=== PATIENT | male | born 1940 | race Caucasian/White ===

== ENCOUNTER 2018-10-22 11:53 | Inpatient (IN) ==
--- NOTE | 2018-10-14 09:35 | EKG Report ---
Test Performed on : 10/14/2018 09:23:14 AM Test Reason : PAT Blood Pressure : / mmHG Vent. Rate : 086 BPM Atrial Rate : 033 BPM P-R Int : 000 ms QRS Dur : 104 ms QT Int : 408 ms P-R-T Axes : 000 -74 060 degrees QTc Int : 488 ms Atrial fibrillation. 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 has replaced Sinus rhythm. Vent. rate has increased BY 31 BPM Incomplete right bundle branch block is no longer present QT has lengthened Confirmed by John Soto MD ([id number]) on 10/15/2018 12:01:54 PM
[2018-10-14 10:00] LABS: HEMATOCRIT 45.5 % (42.0-52.0); HEMOGLOBIN 15.3 g/dL (14.0-18.0); MCH 31.5 PG (27-31); MCHC 33.6 g/dL (33-37); MCV 93.8 FL (81-99); MPV 9.1 FL (7.4-10.4); RBC 4.85 XMIL (4.7-6.1); WBC 7.23 X1000 (4.8-10.8)
[2018-10-14 10:42] LABS: AGAP 11; BUN 19 mg/dL (8-22); CALCIUM 8.7 mg/dL (8.8-10.2); CHLORIDE 101 mmol/L (98-107); COSMO 279; CREATININE 1.1 mg/dL (0.7-1.2); ESTIMATED GFR > 60; GLUCOSE 109 mg/dL (70-104); POTASSIUM 4.5 mmol/L (3.5-5.1); SODIUM 138 mmol/L (136-145); TCO2 26 mmol/L (25-35)
[2018-10-22] MEDS ORDERED: PEPCID ONE (12:09)
[2018-10-22] MEDS ORDERED: REGLAN ONE (12:09)
[2018-10-22] MEDS ORDERED: KEFZOL 1 GM/D5W 1 GM/50 ML IVPB ONE (12:09)
[2018-10-22] MEDS ORDERED: LR 1,000 ML ONE (12:09)
[2018-10-22] MEDS ORDERED: XYLOCAINE-MPF 2% ONE (12:46)
[2018-10-22] MEDS ORDERED: DIPRIVAN 1% ONE (12:47)
[2018-10-22] MEDS ORDERED: FENTANYL ONE (12:47)
[2018-10-22] MEDS ORDERED: NORCURON ONE (12:48)
[2018-10-22] MEDS ORDERED: SODIUM CHLORIDE 0.9% 10 ML ONE ×2 (12:48→14:40)
[2018-10-22 13:14] LABS: AGAP 13; BUN 22 mg/dL (8-22); CALCIUM 8.6 mg/dL (8.8-10.2); CHLORIDE 101 mmol/L (98-107); COSMO 275; CREATININE 1.1 mg/dL (0.7-1.2); ESTIMATED GFR > 60; GLUCOSE 135 mg/dL (70-104); POTASSIUM 4.1 mmol/L (3.5-5.1); SODIUM 135 mmol/L (136-145); TCO2 21 mmol/L (25-35)
[2018-10-22] MEDS ORDERED: KEFZOL ONE (13:43)
[2018-10-22] MEDS ORDERED: PAPAVERINE ONE (13:43)
[2018-10-22] MEDS ORDERED: NS 1,000 ML ONE ×3 (13:43→16:46)
[2018-10-22] MEDS ORDERED: HEPARIN ONE ×2 (13:43→14:40)
[2018-10-22] MEDS ORDERED: SENSORCAINE 0.25%/EPI 1:200,000 ONE (14:05)
[2018-10-22] MEDS ORDERED: EPHEDRINE ONE (14:19)
[2018-10-22] MEDS ORDERED: HEPARIN (DOSE) ONE ×2 (14:26→14:29)
[2018-10-22 14:27] LABS: URINE SOURCE CATH
[2018-10-22 14:31] LABS: BILIRUBIN URINE NEGATIVE (NEGATIVE); BLOOD URINE MODERATE (NEGATIVE); COLOR YELLOW; GLUCOSE URINE NEGATIVE (NEGATIVE); KETONE URINE 10 mg/dL (NEGATIVE); LEUKOCYTES URINE NEGATIVE (NEGATIVE); NITRITE URINE NEGATIVE (NEGATIVE); PH URINE 5.5; PROTEIN URINE 30 mg/dL (NEGATIVE); SP GRAVITY URINE 1.022; TURBIDITY URINE CLEAR (CLEAR); UROBILINOGEN URINE 2 mg/dL (NORMAL)
[2018-10-22 14:33] LABS: UR EPITHELIAL CELLS <10 /HPF (<10); URINE BACTERIA NEGATIVE /HPF; URINE RBC TNTC /HPF (<10); URINE WBC <10 /HPF (<10)
[2018-10-22] MEDS ORDERED: NEO-SYNEPHRINE ONE (14:40)
[2018-10-22] MEDS ORDERED: ROBINUL ONE (14:45)
[2018-10-22] MEDS ORDERED: NEOSTIGMINE ONE (14:45)
[2018-10-22] MEDS ORDERED: VENTOLIN HFA ONE (15:11)
[2018-10-22] MEDS: MORPHINE ONE ×2 (16:56→16:59)
[2018-10-22] MEDS ORDERED: NS 1,000 ML IV SCH (17:25)
[2018-10-22] MEDS: PERCOCET-10 PO PRN (18:58)
[2018-10-22] MEDS: PERIDEX MT SCH (20:16)
[2018-10-22] MEDS: TENORMIN PO SCH (20:16)
[2018-10-22] MEDS: DILAUDID IV PRN (20:16)
[2018-10-22] MEDS: ELIQUIS PO SCH (20:16)
--- NOTE | 2018-10-22 21:23 | OPERATIVE NOTE ---
PROCEDURE DATE: 10/22/2018 PROCEDURE PERFORMED: Right femoral to distal popliteal cadaveric vein bypass. SURGEON: Galileo Encinas MD. SUGAR REPROCESS OPERATOR HEAD: Grazyna Truong. PREOPERATIVE DIAGNOSIS: Right leg claudication with superficial femoral artery and popliteal occlusion. POSTOPERATIVE DIAGNOSIS: Right leg claudication with superficial femoral artery and popliteal occlusion. FINDINGS: The patient had a previous popliteal stent; it is now occluded. His whole superficial femoral artery was occluded. His greater saphenous vein felt to be marginal for use, so, I chose a cadaveric vein. DESCRIPTION OF PROCEDURE: After satisfactory general endotracheal anesthesia, the right leg was prepped and draped in a sterile fashion. The foot was excluded. A vertical incision was made in the right groin. Dissection was carried down to the common femoral artery and surrounded with an umbilical tape proximally. The superficial femoral and deep femoral surrounded with large vessel loops. We then turned our attention to the distal leg, and the proximal medial calf was incised longitudinally. We carried our incision in the distal popliteal space. Here we identified the distal popliteal artery and surrounded it with a vessel loop proximally and distally right, and the tibioperoneal trunk with another vessel loop going around the anterior tibial artery. We then passed Dossick tunneler from proximal to distal. After that had been positioned, we gave the patient 6000 units of heparin systemically. The vein had been thawed, and we had a 75 cm vein from a 21- year-old with less than 24-hour ischemic time. The vein was flushed according to recommendations with saline and heparin. We then stretched the vein out on the back table and marked it so that we would not twist it. We then passed the vein in the appropriate position through the Dossick tunneler from distal to proximal. We then clamped the artery proximally on the common femoral and used a profunda clamp on the deep femoral. We then made a longitudinal incision in the common femoral. There was calcium plaque in the artery. We then spatulated the vein graft and constructed this anastomosis with a 5-0 Prolene stitch. Upon completion, we then allowed flow in the vein graft. A couple of extra stitches were used along the proximal anastomosis. The vein did distend and lengthen. We stretched it out so that we would have no extra redundancy throughout its course in the leg. I had a good pulse. We then kept the common femoral clamped, looked in the distal popliteal, incised the distal popliteal, and passed a 3 probe distally. There was some plaque there at the takeoff of the anterior tibial, and we could not really enter the anterior tibial. The 3 probe would go into the tibioperoneal trunk, and there was back bleeding. We then cut the vein graft the appropriate length. We incised the vein graft to match our arteriotomy and then constructed this anastomosis under 2.5 loupe magnification using a 6-0 Prolene stitch. Just prior to finishing, we back-bled the distal vessel. We flushed the vein graft, and there was excellent pulsatile flow. We then finished the anastomosis, and flow was established. An extra stitch was used in the distal anastomosis as well. We irrigated out both wounds with Kefzol-impregnated saline. We then closed both wounds with 2 layers of 3-0 Polysorb interrupted stitches. The skin was then closed with a 4-0 Polysorb subcuticular stitch on both wounds. Sterile dressings were applied. He tolerated it well. Estimated blood loss was 100 mL. Sent to the recovery room in satisfactory condition. cc: Galileo Encinas MD [facility]
[2018-10-22 22:37] LABS: URINE SOURCE CATH
[2018-10-22 22:56] LABS: BILIRUBIN URINE NEGATIVE (NEGATIVE); BLOOD URINE MODERATE (NEGATIVE); COLOR YELLOW; GLUCOSE URINE 150 mg/dL (NEGATIVE); KETONE URINE 10 mg/dL (NEGATIVE); LEUKOCYTES URINE NEGATIVE (NEGATIVE); NITRITE URINE NEGATIVE (NEGATIVE); PROTEIN URINE 30 mg/dL (NEGATIVE); SP GRAVITY URINE 1.019; TURBIDITY URINE CLEAR (CLEAR); UROBILINOGEN URINE NORMAL (NORMAL)
[2018-10-22 22:59] LABS: UR EPITHELIAL CELLS <10 /HPF (<10); URINE BACTERIA NEGATIVE /HPF; URINE WBC <10 /HPF (<10)
[2018-10-22 23:18] LABS: URINE CASTS NONE SEEN; URINE CRYSTALS NONE SEEN; URINE SMALL ROUND CELLS NONE SEEN; URINE YEAST NONE SEEN
[2018-10-23] MEDS: DILAUDID IV PRN ×4 (01:06→22:54)
[2018-10-23] MEDS: PERCOCET-10 PO PRN ×2 (05:40→12:50)
[2018-10-23 06:39] LABS: BASO# 0.01 X1000 (0.0-0.2); BASO% 0.1 % (0.0-0.8); EOS# 0.06 X1000 (0.0-0.7); EOS% 0.8 % (0.0-10.0); HEMATOCRIT 38.1 % (42.0-52.0); HEMOGLOBIN 12.7 g/dL (14.0-18.0); LYMPH% 17.6 % (20.5-51.1); MCH 31.5 PG (27-31); MCHC 33.3 g/dL (33-37); MCV 94.5 FL (81-99); MONO# 1.08 X1000 (0.11-0.59); MONO% 14.7 % (1.7-9.3); MPV 9.5 FL (7.4-10.4); NEUT# 4.92 X1000 (1.4-6.5); NEUT% 66.8 % (42.2-75.2); PLT 189 X1000 (130-400); RBC 4.03 XMIL (4.7-6.1); RDW 15.2 % (11.5-14.5); WBC 7.37 X1000 (4.8-10.8)
[2018-10-23 07:20] LABS: AGAP 9; BUN 19 mg/dL (8-22); CALCIUM 7.7 mg/dL (8.8-10.2); CHLORIDE 102 mmol/L (98-107); COSMO 275; CREATININE 1.1 mg/dL (0.7-1.2); ESTIMATED GFR > 60; GLUCOSE 151 mg/dL (70-104); POTASSIUM 4.8 mmol/L (3.5-5.1); SODIUM 135 mmol/L (136-145); TCO2 24 mmol/L (25-35)
[2018-10-23] MEDS: PERIDEX MT SCH ×2 (08:15→21:37)
[2018-10-23] MEDS: ELIQUIS PO SCH ×2 (08:15→22:56)
[2018-10-23] MEDS: ASPIRIN PO SCH (08:15)
[2018-10-23] MEDS: NORVASC PO SCH (08:15)
[2018-10-23] MEDS: TENORMIN PO SCH ×2 (08:15→22:56)
[2018-10-23] MEDS ORDERED: NS 1,000 ML IV SCH (15:05)
--- NOTE | 2018-10-23 22:34 | GENERAL SURGERY PROGRESS NOTE ---
DATE: 10/23/2018 SUBJECTIVE: Postop day 1 after right femoral distal popliteal to the cadaveric vein bypass. OBJECTIVE: His foot is warm. He has a faint posterior tibial pulse. His hemodynamics were good. Hemoglobin 12.7. Chemistry is fine. PLAN: The plan will be to remove his Ackerman, make his IV KVO and we will allow him to go home tomorrow on Eliquis. He will return to see me in the office in a week. We discussed his activity. He knows he is to stop smoking. cc: Galileo Encinas MD
[2018-10-24] MEDS: PERCOCET-10 PO PRN ×3 (02:22→14:11)
[2018-10-24] MEDS: DILAUDID IV PRN ×4 (02:58→23:16)
[2018-10-24] MEDS: PERIDEX MT SCH ×2 (08:21→23:03)
[2018-10-24] MEDS: ASPIRIN PO SCH (08:21)
[2018-10-24] MEDS: TENORMIN PO SCH ×2 (08:21→23:04)
[2018-10-24] MEDS: ELIQUIS PO SCH ×2 (08:21→23:03)
[2018-10-24] MEDS: NORVASC PO SCH (08:21)
[2018-10-24] MEDS ORDERED: FLOMAX PO ONE (12:52)
[2018-10-24 19:10] LABS: URINE SOURCE CATH
[2018-10-24 19:27] LABS: BILIRUBIN URINE NEGATIVE (NEGATIVE); BLOOD URINE LARGE (NEGATIVE); COLOR YELLOW; GLUCOSE URINE TRACE mg/dL (NEGATIVE); KETONE URINE NEGATIVE (NEGATIVE); LEUKOCYTES URINE TRACE (NEGATIVE); NITRITE URINE NEGATIVE (NEGATIVE); PROTEIN URINE 30 mg/dL (NEGATIVE); SP GRAVITY URINE 1.019; TURBIDITY URINE CLEAR (CLEAR); UROBILINOGEN URINE NORMAL (NORMAL)
[2018-10-24 20:01] LABS: UR EPITHELIAL CELLS <10 /HPF (<10); URINE BACTERIA NEGATIVE /HPF; URINE RBC TNTC /HPF (<10); URINE WBC <10 /HPF (<10)
[2018-10-24 20:03] LABS: URINE CASTS NONE SEEN; URINE CRYSTALS NONE SEEN; URINE YEAST NONE SEEN
[2018-10-25] MEDS: DILAUDID IV PRN ×4 (07:56→21:43)
[2018-10-25] MEDS: PERIDEX MT SCH ×2 (09:15→21:44)
[2018-10-25] MEDS: TENORMIN PO SCH ×2 (09:15→21:44)
[2018-10-25] MEDS: ASPIRIN PO SCH (09:16)
[2018-10-25] MEDS: ELIQUIS PO SCH ×2 (09:16→21:44)
[2018-10-25] MEDS: FLOMAX PO SCH (09:16)
[2018-10-25] MEDS: NORVASC PO SCH (09:16)
[2018-10-25] MEDS: PERCOCET-10 PO PRN ×3 (10:13→23:18)
[2018-10-25] MEDS: DUONEB (A & A) INH SCH ×4 (11:07→23:03)
--- NOTE | 2018-10-25 11:08 | Diag Imaging Result Doc PS360 ---
CHEST-2 VIEWS - 10/25/2018 INDICATION: increases shortness of breath COMPARISON: 06/29/2015 FINDINGS: There is severe COPD. There are diffuse interstitial infiltrates in the midlungs and lung bases. There are trace bilateral pleural effusions. Heart size is slightly enlarged. IMPRESSION: Cardiomegaly, pulmonary edema, trace pleural effusions. Severe COPD. Electronically signed by Marques Victoria 10/25/2018 11:06 AM
--- NOTE | 2018-10-25 14:10 | PROGRESS NOTE ---
DATE: 10/25/2018 Mr. Merino is now postop day right femoral popliteal arterial bypass graft per Dr. Encinas. He is still having some serosanguineous drainage from his lower incision which is intact and without infection. He is having some work of breathing. He is on nasal cannula O2. We had to place a Ackerman yesterday because of urinary retention. We started him on Flomax. He needs breathing treatments. He may need home O2. We are concerned about his living situation. Home health has been consulted but they may not see him over the weekend. We are going to try to improve his breathing with breathing treatments. We will get a chest x-ray. We will leave his Ackerman catheter tube in place. He is on Flomax. He is on Eliquis. We are also concerned whether he fills and takes his medicine correctly. I have signed a paper for consideration of home O2. He is not eating well and I have encouraged him to take p.o. nutrition. cc: MD Galileo Garsia MD
[2018-10-25] MEDS: ZOFRAN IV PRN (19:24)
[2018-10-26] MEDS: DUONEB (A & A) INH SCH ×6 (03:34→23:22)
[2018-10-26] MEDS: DILAUDID IV PRN ×4 (04:11→22:15)
[2018-10-26] MEDS: PERCOCET-10 PO PRN ×3 (06:46→18:48)
[2018-10-26] MEDS: ELIQUIS PO SCH ×2 (08:48→22:18)
[2018-10-26] MEDS: NORVASC PO SCH (08:48)
[2018-10-26] MEDS: PERIDEX MT SCH ×2 (08:48→22:18)
[2018-10-26] MEDS: ASPIRIN PO SCH (08:48)
[2018-10-26] MEDS: TENORMIN PO SCH ×2 (08:48→22:18)
[2018-10-26] MEDS: FLOMAX PO SCH (08:48)
--- NOTE | 2018-10-26 09:42 | PROGRESS NOTE ---
DATE: 10/26/2018 Mr. Jono Merino is a 77-year-old, white male who underwent a right femoral popliteal arterial bypass graft per Dr. Encinas. He has good flow to his right foot with a palpable dorsalis pedis pulse. His wounds are intact. His distal wound is draining some serous fluid and I changed the dry dressing today. There was no evidence of infection. Yesterday, he was having increased work of breathing. We started him on breathing treatments. He still has supplemental oxygen and we looked to have him evaluated for possible home oxygen. We have had to place a Ackerman catheter tube because of urinary retention. I started him on Flomax and his Ackerman remains in place. His social status is an issue and we need to work on discharge planning. He may need something more than home health. We need to make sure that he can get his p.o. Eliquis and take it correctly. He is not eating much and I have encouraged p.o. intake. cc: MD Galileo Garsia MD
[2018-10-27] MEDS: PERCOCET-10 PO PRN ×6 (00:04→20:17)
[2018-10-27] MEDS: DILAUDID IV PRN ×3 (02:56→10:44)
[2018-10-27] MEDS: DUONEB (A & A) INH SCH ×6 (03:38→23:32)
[2018-10-27] MEDS: TENORMIN PO SCH ×2 (08:22→22:33)
[2018-10-27] MEDS: ASPIRIN PO SCH (08:23)
[2018-10-27] MEDS: PERIDEX MT SCH ×2 (08:23→22:33)
[2018-10-27] MEDS: FLOMAX PO SCH (08:23)
[2018-10-27] MEDS: ELIQUIS PO SCH ×2 (08:23→22:33)
[2018-10-27] MEDS: NORVASC PO SCH (08:23)
[2018-10-27] MEDS: ZOFRAN IV PRN (10:44)
[2018-10-27] MEDS ORDERED: SALINE LOCK IV FLUID XX ONE (11:24)
[2018-10-27] MEDS ORDERED: LASIX IV ONE (11:24)
[2018-10-27 11:48] LABS: ALLEN TEST YES; BE 1.7 mmoll (-3.0-3.0); BLOOD TYPE ARTERIAL; HCO3-(ACT) 25.7 mmoll (20.0-26.0); METHB 0.7 % (0.0-1.5); O2(CT) 11.1 mL/dL (15.0-23.0); PCO2(98.6) 49 mmHg (35-45); SAMPLE BLOOD; SAO2 73.8 % (95.0-100.0); pH(98.6) 7.36 (7.35-7.45)
--- NOTE | 2018-10-27 11:49 | Diag Imaging Result Doc PS360 ---
CHEST-PORTABLE - 10/27/2018 INDICATION: sob COMPARISON: 10/25/2018 FINDINGS: There has been significant worsening in the interstitial infiltrates mainly throughout the right lung. Heart size is borderline. There are trace bilateral pleural effusions. 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 IMPRESSION: Significant worsening infiltrate throughout the right midlung and lung base. This may represent pneumonia or asymmetric pulmonary edema. Other findings are stable. Electronically signed by Marques Victoria 10/27/2018 11:47 AM
[2018-10-27 11:50] LABS: MODALITY CANNULA; O2HB 71.9 % (95.0-99.0); PO2(98.6) 39 mmHg (60-100)
[2018-10-27] MEDS ORDERED: LEVAQUIN 500 MG/D5W 500 MG/100 ML IVPB IV ONE (14:11)
--- NOTE | 2018-10-27 15:13 | GENERAL SURGERY PROGRESS NOTE ---
DATE: 10/27/2018 SUBJECTIVE: Mr. Merino is now 5 days after his bypass. He has been kept in the hospital due to his pulmonary status. He required replacement of his Ackerman as well. OBJECTIVE: He is afebrile. Heart rate 108, blood pressure 127/76, respiratory rate is 20. He has some wheezing bilaterally. His I's and O's have been pretty the even the past 3 days. His leg is warm. His wounds are fine. He is afebrile. PLAN: The plan today is to get a chest x-ray and some blood gases. I will stop his IV fluids and put him on saline lock and give Lasix 40 mg IV. Then we will recheck his labs in the morning. We will decide about when he will be able to go home but right now his pulmonary status will not allow it. cc: Galileo Encinas MD
[2018-10-27] MEDS: CLINDAMYCIN 900 MG/D5W 900 MG/50 ML IVPB IV SCH ×2 (16:05→22:31)
[2018-10-27] MEDS ORDERED: PNEUMOVAX 23 IM ONE (20:35)
[2018-10-28] MEDS: DUONEB (A & A) INH SCH ×6 (03:18→23:10)
[2018-10-28] MEDS: CLINDAMYCIN 900 MG/D5W 900 MG/50 ML IVPB IV SCH ×3 (05:18→23:18)
[2018-10-28] MEDS: PERCOCET-10 PO PRN ×4 (05:18→23:18)
[2018-10-28 07:06] LABS: BASO# 0.01 X1000 (0.0-0.2); BASO% 0.2 % (0.0-0.8); EOS# 0.14 X1000 (0.0-0.7); EOS% 2.4 % (0.0-10.0); HEMATOCRIT 30.6 % (42.0-52.0); HEMOGLOBIN 10.2 g/dL (14.0-18.0); LYMPH# 1.29 X1000 (1.2-3.4); LYMPH% 21.8 % (20.5-51.1); MCH 31.8 PG (27-31); MCHC 33.3 g/dL (33-37); MCV 95.3 FL (81-99); MONO# 1.44 X1000 (0.11-0.59); MONO% 24.4 % (1.7-9.3); MPV 9.4 FL (7.4-10.4); NEUT# 3.03 X1000 (1.4-6.5); NEUT% 51.2 % (42.2-75.2); PLT 242 X1000 (130-400); RBC 3.21 XMIL (4.7-6.1); RDW 14.7 % (11.5-14.5); WBC 5.91 X1000 (4.8-10.8)
[2018-10-28 07:34] LABS: MAGNESIUM 1.8 mg/dL (1.5-2.7); PHOSPHORUS 4.6 mg/dL (2.7-4.5)
[2018-10-28] MEDS ORDERED: ZOFRAN IV PRN (07:38)
[2018-10-28 07:39] LABS: AGAP 11; BUN 28 mg/dL (8-22); CALCIUM 8.5 mg/dL (8.8-10.2); CHLORIDE 98 mmol/L (98-107); COSMO 279; ESTIMATED GFR > 60; GLUCOSE 131 mg/dL (70-104); POTASSIUM 4.4 mmol/L (3.5-5.1); SODIUM 136 mmol/L (136-145); TCO2 27 mmol/L (25-35)
[2018-10-28] MEDS: MUCOMYST 20% INH SCH ×2 (08:14→19:45)
--- NOTE | 2018-10-28 08:57 | PULMONOLOGY CONSULTATION ---
DATE: 10/27/2018 REQUESTING CLINICIAN: Dr. Galileo Encinas. REASON FOR CONSULTATION: Hypoxemia and chronic obstructive pulmonary disease. HISTORY OF PRESENT ILLNESS: Mr. Merino is a 77-year-old with history of COPD and ongoing tobacco use who has had increased pain and difficulty with ulceration on his right lower extremity. The patient underwent a femoral-popliteal bypass on 10/22/2018. His postoperative course has been complicated by urinary retention and persistent oxygen requirements. He had dyspnea yesterday, but this has improved. PAST MEDICAL HISTORY: 1. Chronic obstructive pulmonary disease. 2. Peripheral vascular disease. 3. Hypertension. 4. History of gastric ulcer disease. 5. Status post treatment for hepatitis C. 6. History of treatment of positive PPD. 7. History of cervical spine surgery. 8. Status post lumbar spine surgery. 9. Status post right knee surgery. SOCIAL HISTORY: Positive for ongoing tobacco use. Prior cocaine use. Daily alcohol use. REVIEW OF SYSTEMS: Positive for decreased pain in the right lower extremity, mild drainage from the right lower extremity, cough with sputum production. PHYSICAL EXAMINATION: General: A thin, chronically ill-appearing male who appears older than his stated age of 77. Vital Signs: Blood pressure 109/76, heart rate 111, respiratory rate 19 and unlabored, oxygen saturation 100% on non-rebreather. HEENT: Pupils are equal and reactive. Oropharynx is clear. Neck: Supple. Chest: Reveals scattered rhonchi and wheezing bilaterally. Cardiac Exam: S1-S2. Abdomen: Soft. Extremities: Reveal mild serous drainage from surgical wound sites. LABORATORIES: Chest x-ray reveals hyperinflation, trace effusions, component of fibrosis with infiltrate in the right mid lung and base. IMPRESSION: A 77-year-old with: 1. Hypoxemic respiratory failure. 2. Pneumonia. 3. Chronic obstructive pulmonary disease. 4. Ongoing tobacco use. PLAN: 1. Agree with clindamycin. This will give gram-positive coverage. 2. We will add Levaquin for gram-negative coverage. He did receive a dose earlier today. 3. Supplement mucolytic with acetylcysteine. 4. Encourage smoking cessation. 5. Wean oxygen as tolerated. 6. Anticipate the need for oxygen at the time of discharge. cc: MD Galileo Pratt MD
[2018-10-28] MEDS: TENORMIN PO SCH (09:22)
[2018-10-28] MEDS: PERIDEX MT SCH ×2 (09:22→23:18)
[2018-10-28] MEDS: FLOMAX PO SCH (09:22)
[2018-10-28] MEDS: LEVAQUIN PO SCH (09:22)
[2018-10-28] MEDS: NORVASC PO SCH (09:22)
[2018-10-28] MEDS: ASPIRIN PO SCH (09:22)
[2018-10-28] MEDS: ELIQUIS PO SCH ×2 (09:22→23:18)
--- NOTE | 2018-10-28 11:26 | GENERAL SURGERY PROGRESS NOTE ---
DATE: 10/28/2018 Mr. Merino is now 6 days after his vein bypass. It has been complicated by respiratory failure and pneumonia. He is breathing better today. He is afebrile, heart rate is 84 and irregular, blood pressure 114/75. His wounds are fine. He has good Doppler flow in his foot. We will continue to treat him with antibiotic therapy and bronchodilator therapy in hopes that we can clear his lungs. I will not take his Ackerman out due to the replacement on 10/24/2018 with urinary retention. He is slowly improving. cc: Galileo Encinas MD
--- NOTE | 2018-10-28 21:58 | PULMONOLOGY PROGRESS NOTE ---
DATE: 10/28/2018 SUBJECTIVE: The patient is awake, alert, and conversant. His audible rhonchi have resolved. He reports his shortness of breath has diminished. OBJECTIVE: Vital Signs: The patient has been afebrile for the last 24 hours. Blood pressure 122/73, heart rate 105, respiratory rate 14, oxygen 100% on non-rebreather. HEENT: Pupils are equal and reactive. Oropharynx appears clear. Neck: Supple. Chest: Occasional rhonchi bilaterally, but with better air flow than yesterday. Cardiac: S1, S2. Abdomen: Soft. Extremities: Recent surgery for revascularization. LABORATORIES: White blood count 5.91, hemoglobin 10.2, platelet count 242,000. Sodium 136, potassium 4.4, chloride 98, bicarbonate 27, BUN 28, creatinine 1.0. IMPRESSION: A 77-year-old with: 1. Acute hypoxemic respiratory failure. 2. Pneumonia. 3. Chronic obstructive pulmonary disease. 4. Ongoing tobacco use. PLAN: 1. Continue current antibiotic regimen. 2. Continue mucolytics. 3. Encourage smoking cessation. 4. Wean oxygen as tolerated. 5. Obtain 2-view chest x-ray tomorrow. 6. Anticipate oxygen at the time of discharge. cc: MD Galileo Pratt MD
[2018-10-29] MEDS: DUONEB (A & A) INH SCH ×6 (03:38→23:36)
[2018-10-29] MEDS: PERCOCET-10 PO PRN ×3 (05:24→21:35)
[2018-10-29] MEDS: CLINDAMYCIN 900 MG/D5W 900 MG/50 ML IVPB IV SCH ×3 (05:24→21:34)
[2018-10-29] MEDS: TENORMIN PO SCH ×3 (06:37→21:35)
--- NOTE | 2018-10-29 07:34 | Diag Imaging Result Doc PS360 ---
CHEST-2 VIEWS - 10/29/2018 INDICATION: abnormal exam COMPARISON: 10/27/2018 FINDINGS: There has been improvement in the ill-defined interstitial infiltrates in the lung bases and midlungs. There are trace pleural effusions similar to prior. Heart size is top normal. Stable severe COPD. IMPRESSION: Overall improvement in the interstitial pulmonary edema. Electronically signed by Marques Victoria 10/29/2018 7:32 AM
[2018-10-29] MEDS: MUCOMYST 20% INH SCH ×2 (07:54→20:04)
[2018-10-29] MEDS: FLOMAX PO SCH (08:08)
[2018-10-29] MEDS: LEVAQUIN PO SCH (08:08)
[2018-10-29] MEDS: ELIQUIS PO SCH ×2 (08:08→21:34)
[2018-10-29] MEDS: ASPIRIN PO SCH (08:08)
[2018-10-29] MEDS: PERIDEX MT SCH ×2 (08:08→21:35)
[2018-10-29] MEDS: NORVASC PO SCH (08:08)
--- NOTE | 2018-10-29 11:32 | GENERAL SURGERY PROGRESS NOTE ---
DATE: 10/29/2018 Mr. Merino says he feels better, he is breathing better, his intake was 1220, output 1500. His right leg wounds look satisfactory. His chest x-ray today shows improvement in the interstitial pulmonary edema. The plan is to remove his Ackerman today and we will see how he does with that and we will repeat his chest x-ray tomorrow, and his gases will decide about timing of discharge. cc: Galileo Encinas MD
[2018-10-30] MEDS: DUONEB (A & A) INH SCH ×3 (03:32→12:09)
[2018-10-30 04:47] LABS: ALLEN TEST YES; BE 4.6 mmoll (-3.0-3.0); BLOOD TYPE ARTERIAL; HCO3-(ACT) 28.5 mmoll (20.0-26.0); METHB 0.8 % (0.0-1.5); O2(CT) 13.5 mL/dL (15.0-23.0); O2HB 95.5 % (95.0-99.0); PCO2(98.6) 37 mmHg (35-45); PO2(98.6) 104 mmHg (60-100); SAMPLE BLOOD; SAO2 98.6 % (95.0-100.0); THB 9.9 g/dL (11.5-17.4); pH(98.6) 7.49 (7.35-7.45)
[2018-10-30 04:50] LABS: MODALITY VENTIMASK
[2018-10-30] MEDS: MUCOMYST 20% INH SCH (08:22)
[2018-10-30] MEDS: CLINDAMYCIN 900 MG/D5W 900 MG/50 ML IVPB IV SCH (10:00)
[2018-10-30] MEDS: TENORMIN PO SCH (10:00)
[2018-10-30] MEDS: ELIQUIS PO SCH (10:00)
[2018-10-30] MEDS: NORVASC PO SCH (10:00)
[2018-10-30] MEDS: PERIDEX MT SCH ×2 (10:00→10:02)
[2018-10-30] MEDS: LEVAQUIN PO SCH (10:00)
[2018-10-30] MEDS: FLOMAX PO SCH (10:00)
[2018-10-30] MEDS: ASPIRIN PO SCH (10:00)
[2018-10-30] MEDS ORDERED: NS 0 ML ONE (10:03)
[2018-10-30 14:04] VITALS: BP 108/96
--- NOTE | 2018-10-30 14:06 | GENERAL SURGERY PROGRESS NOTE ---
DATE: 10/30/2018 SUBJECTIVE: His leg is fine. He has good posterior tibial an aunt and dorsalis pedis Doppler flow. His O2 is 104 on 31% Ventimask. PLAN: I talked with Dr. Naidu. He is okay with being discharged. His x-rays improved so we will arrange for him to go home with home oxygen. He will return to see me in the office in a week. cc: Galileo Encinas MD
[2018-10-30] MEDS: PERCOCET-10 PO PRN (14:07)
--- NOTE | 2018-11-02 08:40 | DISCHARGE SUMMARY ---
ADMISSION DATE: 10/22/2018 DISCHARGE DATE: 10/30/2018 PRIMARY DISCHARGE DIAGNOSES: 1. Rest ischemia right leg. 2. Respiratory failure with probable pneumonia. PRIMARY PROCEDURE: Right femoral to distal popliteal cadaveric vein bypass. REASON FOR ADMISSION: This is a 77-year-old smoker who had rest ischemia in his right leg, had previous interventions with clotted SFA and popliteal arteries. He now presents for revascularization. HOSPITAL COURSE: Mr. Merino went to the operating room on 10/22/2018 for a right femoral to distal popliteal cadaveric vein bypass. His iliamna greater saphenous vein was only marginal for use, so we chose a cadaveric vein. Postoperatively, his leg warmed up. I maintained him on Eliquis in order maintain patency for this newly placed graft. He developed low O2 saturations requiring oxygen therapy and bronchodilator therapy. Dr. Naidu was consulted and we ultimately placed him on Mucomyst as well. We did give him clindamycin and Levaquin to cover him for hospital-acquired pneumonia. In response to this bronchodilator therapy and antibiotic therapy, he gradually improved. We kept the Ackerman in him because of urinary retention, but we took it away the day before. It appeared he developed slight amount of hematuria, but we felt that it would resolve with removal of the Ackerman and will follow up with him about that. By 10/30/2018, he was breathing satisfactorily. It was felt that he would require home oxygen therapy. He was encouraged not to smoke. He will return to the office in a week. His leg was well perfused with good Doppler flow at the foot. cc: Galileo Encinas MD
== END 2018-10-30 16:06 | disposition home or self-care (01) | DRG 252 ==
LOC: SURHOLD 11:53 → 4N 16:01
PROVIDERS: ADMIT Surgery; ATTEND Surgery

== ENCOUNTER 2018-12-04 10:25 | Inpatient (IN) ==
[2018-12-04] MEDS ORDERED: NS 500 ML IV ONE (10:43)
--- NOTE | 2018-12-04 10:43 | PROVIDER DOCUMENTATION ---
HPI-Abdominal Pain/GI Problem - General Chief Complaint: Diarrhea Stated Complaint: DIARRHEA,CHILLS Time Seen by Provider: 12/04/18 10:34 Source: patient Allergies/Adverse Reactions: Patient Allergies Allergy/AdvReac Type Severity Reaction Status Date / Time codeine Allergy CONSTIPATIO Verified 10/22/18 17:36 N Home Medications: Home Medication List Medication Instructions Recorded Confirmed Last Taken Type Atenolol [Tenormin] 50 mg PO BID #60 tablet 05/01/14 12/04/18 12/04/18 07:00 Rx Amlodipine [Norvasc] 5 mg PO DAILY 10/22/18 12/04/18 10/22/18 08:00 History Ciprofloxacin HCl [Cipro] 500 mg PO BID #20 tab 12/04/18 Unknown Rx Metronidazole [Flagyl] 500 mg PO TID #30 tab 12/04/18 Unknown Rx - History of Present Illness-ABD Nature of Presenting Problems: 78yom presents to ED c/o diarrhea x1 week s/p being DCd from hospital 1 week ago after admit for vessel bypass surgery and subsequent pneumonia. He denies fever/chills/N/V/abd pain/back pain/dysuria. He states he can barely drink fluids, and cannot eat solids. Pain Radiation: reports: no radiation Quality of Pain: reports: cramping Severity in ED: reports: moderate Onset/Duration: reports: gradual, 3 days ago Timing: reports: still present Activities at Onset: reports: none Exposure to sick contacts?: No Modifying Factors: improves with: nothing Associated Symptoms: reports: diarrhea Rectal Bleeding: reports: none Rectal Pain: reports: none Bruising or Bleeding Gums?: No Similar Symptoms Previously?: No Recently seen or treated by another doctor?: No Review of Systems - Adult - REVIEW OF SYSTEMS - ADULT Constitutional: reports: no symptoms reported Eyes: reports: no symptoms reported Ears, Nose, Mouth & Throat: reports: no symptoms reported Cardiovascular: reports: no symptoms reported Respiratory: reports: no symptoms reported Gastrointestinal: reports: see HPI, diarrhea Genitourinary: reports: no symptoms reported Musculoskeletal: reports: no symptoms reported Integumentary: reports: no symptoms reported Neurological: reports: no symptoms reported Psychiatric: reports: no symptoms reported Endocrine: reports: no symptoms reported Hematologic/Lymphatic: reports: no symptoms reported Allergic/Immunologic: reports: no symptoms reported All Other Systems: Reviewed and Negative Past History - Adult - PAST MEDICAL HISTORY-ADULT Review of Records: reports: Old Records Reviewed, Nursing Assessment Review, Medications Reviewed, Social history reviewed & non-contributory. Major Childhood Illnesses: reports: denies history Cardiovascular: reports: CAD, HTN Respiratory: reports: COPD Gastrointestinal: reports: denies history Obstetrical/Gynecological: reports: denies history Genitourinary: reports: denies history Musculoskeletal: reports: chronic pain Neurological: reports: denies history Endocrine/Immune: reports: denies history Other Conditions: reports: denies history - PRIOR SURGERIES/PROCEDURES Surgical/Procedure History: reports: orthopedic (extremity) - IMMUNIZATION STATUS Childhood Immunizations: See Nurse Assessment Flu Vaccine: See Nurse Assessment - FAMILY HISTORY Family History: reviewed, not pertinent - SOCIAL HISTORY Smoking: non-smoker Living Situation: family Physical Exam-General - PHYSICAL EXAM-ADULT Initial Vital Signs Reviewed: Yes - CONSTITUTIONAL General Appearance: appears well, alert, no apparent distress - EYES Eyes: PERRL/EOMI, pink conjunctivae - HEAD, EARS, NOSE, MOUTH & THROAT HENMT: normocephalic/atraumatic, normal ENT inspection, TMs normal, pharynx normal, other (Dry MM) - NECK Neck: non-tender, full range of motion, supple, normal inspection. negative: meningismus - RESPIRATORY Respiratory: chest non-tender, lungs clear, normal breath sounds - CARDIOVASCULAR Cardiovascular: normal peripheral pulses, regular rate, rhythm - GASTROINTESTINAL (ABDOMEN) Abdominal Exam: normal bowel sounds, non tender, soft, no organomegaly - LYMPHATIC Lymphatic: no adenopathy - MUSCULOSKELETAL Back Exam: normal inspection, no CVA tenderness, no vertebral tenderness Extremity: normal range of motion, non-tender, normal gait, normal inspection - SKIN Integumentary: normal color, normal turgor, warm/dry - NEUROLOGIC Neurologic: international controller II-XII nml as tested, grossly normal, no motor/sensory deficits - PSYCHIATRIC Psych/Mental Status: normal mood/affect, normal thought content, normal thought process, oriented x 3 Progress - PLAN OF CARE/RESULTS Progress/Plan/Lab Results: Vital Signs - 8 hr 12/04/18 10:28 Temperature 97.1 F L Pulse Rate 86 Respiratory Rate 18 Blood Pressure 146/75 O2 Sat by Pulse Oximetry 97 Orders Category Date Time Status Saline Loc NOW Care 12/04/18 10:35 Active BLOOD CULTURE [BLDCUL] Stat Lab 12/04/18 10:35 Uncollected C DIFF TOXIN [STOOL] Stat Lab 12/04/18 10:35 Uncollected CBC WITH DIFF [HEME] Stat Lab 12/04/18 10:35 Uncollected COMPREHENSIVE METABOLIC PANEL [CHEM] Stat Lab 12/04/18 10:35 Uncollected LACTATE, PLASMA [CHEM] Stat Lab 12/04/18 10:35 Uncollected Result Diagrams: 12/04/18 11:11 12/04/18 11:11 - REASSESSMENT Reassessment #1 Time Reassessed: 14:04 (Spoke with Hospitalist PRODUCE SORTER, she recommends admit to Dr. Brown and agrees with Cipro/Flagyl in ED.) Departure - Departure Date of Disposition Decision: 12/04/18 Time of Disposition Decision: 14:02 DIAGNOSIS: C. difficile diarrhea, Dehydration Leukocytosis Qualifiers: Leukocytosis type: unspecified Qualified Code(s): D72.829 - Elevated white blood cell count, unspecified Disposition: ADMITTED INPATIENT 09 Certified Medical Emergency: Emergent Condition: Stable Additional Instructions: Drink plenty of fluids and take your medication as prescribed. ED Follow Up Instructions: You have been treated by a care provider in the Emergency Department. These instructions are being provided to you so you can have an understanding of how to care for yourself upon discharge. Upon discharge from the Emergency Department, you are responsible for making arrangements for follow-up care by a physician of your choice. Take all prescribed medications as directed. Return to the Emergency Department immediately for any new or worsening symptoms. You may call the Physician Referral phone number at [phone] to obtain a list of Physicians who are taking new patients. Prescriptions: Ciprofloxacin HCl [Cipro] 500 mg PO BID #20 tab Metronidazole [Flagyl] 500 mg PO TID #30 tab Referrals and Follow-Ups: Braydon Rousseau MD [Primary Care Provider] - - Critical Care Note This patient required my direct & personal management of CC.: No Attestation - Physician/ GARIMA Attestation Patient care was provided by Advanced Practice Provider:: Yes Advanced Practice Provider:: Shirley Hawkins Advanced Practice Provider documentation review:: The Mid-level provider documentation, treatment plan and medical decision making was reviewed by the physician who agrees with all treatment and medical decision making by the MLP. The physician spent face to face time with patient:: No Advanced Practice Provider documentation review:: Supervising physician onsite and consulted in the evaluation and care of this patient. The physician did not have a face to face encounter with the patient.
[2018-12-04 11:42] LABS: BASO# 0.03 X1000 (0.0-0.2); BASO% 0.2 % (0.0-0.8); EOS# 0.16 X1000 (0.0-0.7); EOS% 1.2 % (0.0-10.0); HEMOGLOBIN 12.1 g/dL (14.0-18.0); IMM GRAN% 0.7 % (0.0-0.5); LYMPH# 1.39 X1000 (1.2-3.4); LYMPH% 10.2 % (20.5-51.1); MCH 28.3 PG (27-31); MCHC 31.8 g/dL (33-37); MONO# 2.47 X1000 (0.11-0.59); MONO% 18.1 % (1.7-9.3); MPV 8.9 FL (7.4-10.4); NEUT# 9.48 X1000 (1.4-6.5); NEUT% 69.6 % (42.2-75.2); PLT 350 X1000 (130-400); RBC 4.27 XMIL (4.7-6.1); RDW 14.5 % (11.5-14.5); WBC 13.63 X1000 (4.8-10.8)
[2018-12-04 11:59] LABS: BANDS 5 % (0-1); EOS 1 % (1-10); LYMPHS 12 % (21-51); MONO 19 % (1-9); SEGS 62 % (42-75)
[2018-12-04 12:01] LABS: ANISOCYTOSIS 1+; MICROCYTOSIS 1+; POLYCHROM OCCASIONAL; SCHISTOCYTES OCCASIONAL
[2018-12-04 12:02] LABS: AGAP 10; ALB/GLOB RATIO 0.8; ALBUMIN 2.7 g/dL (3.5-5.0); ALKALINE PHOSPHATASE 71 U/L (32-122); BUN 18 mg/dL (8-22); CALCIUM 7.7 mg/dL (8.8-10.2); CHLORIDE 99 mmol/L (98-107); COSMO 276; CREATININE 0.9 mg/dL (0.7-1.2); ESTIMATED GFR > 60; GLUCOSE 137 mg/dL (70-104); GOT 11 U/L (10-34); GPT 9 U/L (10-44); POTASSIUM 4.1 mmol/L (3.5-5.1); SODIUM 136 mmol/L (136-145); TCO2 27 mmol/L (25-35); TOTAL BILIRUBIN 0.49 mg/dL (0.20-1.00); TOTAL PROTEIN 6.3 g/dL (6.3-8.3)
[2018-12-04 12:48] LABS: URINE SOURCE CLEAN CATCH
[2018-12-04 12:53] LABS: UR EPITHELIAL CELLS <10 /HPF (<10); URINE BACTERIA NEGATIVE /HPF; URINE RBC <10 /HPF (<10); URINE WBC <10 /HPF (<10)
[2018-12-04 12:54] LABS: BILIRUBIN URINE SMALL (NEGATIVE); BLOOD URINE NEGATIVE (NEGATIVE); COLOR YELLOW; GLUCOSE URINE TRACE mg/dL (NEGATIVE); KETONE URINE NEGATIVE (NEGATIVE); LEUKOCYTES URINE NEGATIVE (NEGATIVE); NITRITE URINE NEGATIVE (NEGATIVE); PROTEIN URINE 50 mg/dL (NEGATIVE); SP GRAVITY URINE 1.027; TURBIDITY URINE CLEAR (CLEAR); UROBILINOGEN URINE 2 mg/dL (NORMAL)
[2018-12-04] MEDS ORDERED: NS 1,150 ML IV ONE (12:58)
[2018-12-04] MEDS ORDERED: FLAGYL 500 MG/NS 500 MG/100 ML IVPB IV ONE (12:59)
[2018-12-04] MEDS ORDERED: CIPRO 400 MG/D5W 400 MG/200 ML IVPB IV SCH (13:00)
--- NOTE | 2018-12-04 14:34 | Diag Imaging Result Doc PS360 ---
EXAM: KUB ABDOMEN - 12/04/2018 HISTORY: abd pain TECHNIQUE: Portable KUB abdomen COMPARISON: None. FINDINGS: There is nonspecific generalized borderline gaseous bowel distention. This involves portions of small bowel and colon. There is apparent bowel gas visible to the rectum. There is a right iliac stent noted. IMPRESSION: Nonspecific borderline gaseous distention of portions of small bowel and colon. Electronically signed by Gaurang Belcher 12/04/2018 2:31 PM
[2018-12-04] MEDS ORDERED: DILAUDID IV ONE (15:02)
[2018-12-04] MEDS: VANCOCIN PO SCH ×2 (17:42→19:38)
[2018-12-04] MEDS: PERCOCET-10 PO PRN (17:45)
[2018-12-04] MEDS: NS 1,000 ML IV SCH (17:46)
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
--- NOTE | 2018-12-04 18:06 | Diag Imaging Result Doc PS360 ---
EXAM: US SCROTUM INDICATION: R swollen testicle TECHNIQUE: COMPARISON: None. FINDINGS: The testicles are normal in echotexture with no discrete testicular mass or cyst. Both testicles exhibit normal Doppler flow. The epididymides are not identified by the roll grinder operator. There is a very large cystic structure superior to the right testicle measuring 5.7 x 8.3 x 3.0 cm. There are a few small internal septations. This may represent a very large epididymal cyst and probably a spermatocele. There is a similar but smaller cyst at the superior aspect of the left testicle measuring 3.1 x 2.0 x 1.4 cm. IMPRESSION: Very large cystic structure superior to the right testicle and a smaller cystic structure superior to the left testicle. Consider spermatoceles. Electronically signed by Dmitriy Beckman 12/04/2018 6:04 PM
--- NOTE | 2018-12-04 18:18 | HISTORY AND PHYSICAL ---
ADDENDUM: The patient is seen and examined by me face to face. All laboratory, vital signs and images were reviewed. This patient was discharged on 10/30/2018, and he received antibiotics of clindamycin and levofloxacin to take home. A right femoral to distal popliteal cadaveric vein bypass was performed on 10/22/2018. As per the patient, now he is coming with severe diarrhea that has been going on for 1 week. He denies any nausea, vomiting, but decreased appetite. No fever. No chills. We did an abdominal x-ray that showed a nonspecific borderline gaseous distention of portions of the small bowel and colon. We also did the laboratory that showed a WBC of 13.6, hemoglobin 12.1, and lactate level is 2.6. Kidney function looks good, but C. Diff toxin is positive. This patient will be admitted. We will put this patient on treatment for the C. Difficile colitis. He will receive vancomycin and Flagyl for now. IV fluids and pain medication. He also has been complaining of some right testicular swelling, and we will get a testicular ultrasound as well. We will monitor this patient closely. He will be admitted with isolation to the floor. He will be placed on a clear liquid diet for now. I agree with the rest of the nurse practitioner's assessment and plan. cc: Mathew Hughes MD
[2018-12-04] MEDS: FLAGYL 500 MG/NS 500 MG/100 ML IVPB IV SCH (20:16)
[2018-12-05] MEDS: FLAGYL 500 MG/NS 500 MG/100 ML IVPB IV SCH ×4 (03:05→21:57)
[2018-12-05] MEDS: VANCOCIN PO SCH ×4 (03:05→21:57)
[2018-12-05 05:39] LABS: BASO# 0.03 X1000 (0.0-0.2); BASO% 0.2 % (0.0-0.8); EOS# 0.11 X1000 (0.0-0.7); EOS% 0.8 % (0.0-10.0); HEMATOCRIT 30.8 % (42.0-52.0); IMM GRAN% 0.8 % (0.0-0.5); LYMPH% 10.5 % (20.5-51.1); MCH 28.5 PG (27-31); MCHC 32.5 g/dL (33-37); MCV 87.7 FL (81-99); MONO# 2.26 X1000 (0.11-0.59); MPV 8.3 FL (7.4-10.4); NEUT% 70.7 % (42.2-75.2); PLT 335 X1000 (130-400); RBC 3.51 XMIL (4.7-6.1); RDW 14.5 % (11.5-14.5)
[2018-12-05 06:01] LABS: AGAP 9; ALB/GLOB RATIO 0.9; ALBUMIN 2.3 g/dL (3.5-5.0); ALKALINE PHOSPHATASE 58 U/L (32-122); BUN 13 mg/dL (8-22); CALCIUM 7.6 mg/dL (8.8-10.2); CHLORIDE 105 mmol/L (98-107); COSMO 273; CREATININE 0.9 mg/dL (0.7-1.2); ESTIMATED GFR > 60; GLUCOSE 117 mg/dL (70-104); GOT 8 U/L (10-34); GPT 7 U/L (10-44); MAGNESIUM 1.5 mg/dL (1.5-2.7); POTASSIUM 3.5 mmol/L (3.5-5.1); SODIUM 136 mmol/L (136-145); TCO2 22 mmol/L (25-35); TOTAL BILIRUBIN 0.52 mg/dL (0.20-1.00); TOTAL PROTEIN 4.9 g/dL (6.3-8.3)
--- NOTE | 2018-12-05 07:02 | Diag Imaging Result Doc PS360 ---
EXAM: CHEST-PORTABLE 12/05/2018 HISTORY: new admit r/o PNA TECHNIQUE: AP portable at 0501 COMMENT: There is increased opacity in the right upper lobe inferiorly compared to the previous study of 10/29/2018. The pleural fluid collections which were present previously bilaterally have improved. IMPRESSION: Improved pleural effusions. Right upper lobe pneumonia. Electronically signed by Scott Logan 12/05/2018 7:00 AM
[2018-12-05] MEDS: PERCOCET-10 PO PRN ×3 (07:58→18:34)
[2018-12-05] MEDS: NS 1,000 ML IV SCH ×2 (08:01→21:57)
--- NOTE | 2018-12-05 14:49 | PROGRESS NOTE ---
DATE: 12/05/2018 SUBJECTIVE: This patient is still having diarrhea, as per the patient it is a large amount, he is still complaining of abdominal pain. We will continue with the same management for now, the scrotum ultrasound showed a very large cyst structure superior to the right testicle and a smaller cyst structure superior to the left testicle, probably spermatocele. OBJECTIVE: Vital Signs: Temperature 98.3 degrees, pulse 71, respiratory rate 18, blood pressure 128/67, oxygen saturation 94% on room air. HEENT: Head normocephalic, no trauma. PERRLA. Neck: Supple, no JVD. No masses. Central trachea. Chest: Clear to auscultation. No wheezing. No rales. Abdomen: Soft, generalized tenderness to palpation and a little bit distended. Positive bowel sounds but hyperactive. Inguinal area, his right testicle is enlarged but is not painful to palpation. No signs of infection or redness. Extremities: No edema, no clubbing, no cyanosis. Neurologic: Patient is alert and oriented x3. No focal deficits. LABORATORY: WBC 13.3, hemoglobin 30.8, hematocrit 87.7, platelet 335,000. Sodium 136, potassium 3.5, chloride 105, bicarbonate 22, BUN 13, creatinine 0.9, glucose 117, calcium 7.6, AST 8, ALT 7, alkaline phosphatase 58, albumin 2.3. ASSESSMENT AND PLAN: 1. C. difficile colitis secondary to antibiotic abuse, continue with p.o. vancomycin and IV Flagyl. Continue with IV fluids as well. I think he is a little bit better but he is still having large bowel movements. 2. Leukocytosis, secondary to #1. 3. Peripheral vascular disease, status post femoral-popliteal bypass by Dr. Encinas in early October. 4. Treatment for hospital-acquired pneumonia resolved. 5. COPD, apparently on home oxygen. 6. Tobacco use and abuse. This patient has been highly advised against tobacco use. I will continue with daily cessation education. 7. Complaining of right testicle swelling and pain, we did a scrotal ultrasound that showed a large cyst, I talked to the patient about it and he will need to follow up with Urology Department as an outpatient. cc: Mathew Hughes MD
[2018-12-06] MEDS: PERCOCET-10 PO PRN ×6 (00:12→23:36)
[2018-12-06] MEDS: VANCOCIN PO SCH ×4 (02:57→20:08)
[2018-12-06] MEDS: FLAGYL 500 MG/NS 500 MG/100 ML IVPB IV SCH ×4 (02:57→20:08)
[2018-12-06 06:10] LABS: BASO# 0.04 X1000 (0.0-0.2); BASO% 0.5 % (0.0-0.8); EOS% 3.4 % (0.0-10.0); HEMATOCRIT 34.3 % (42.0-52.0); HEMOGLOBIN 11.2 g/dL (14.0-18.0); IMM GRAN# 0.07 X1000 (0.0-0.04); IMM GRAN% 0.8 % (0.0-0.5); LYMPH# 1.49 X1000 (1.2-3.4); MCH 28.6 PG (27-31); MCHC 32.7 g/dL (33-37); MCV 87.7 FL (81-99); MONO# 1.76 X1000 (0.11-0.59); MONO% 20.1 % (1.7-9.3); MPV 8.3 FL (7.4-10.4); NEUT# 5.11 X1000 (1.4-6.5); NEUT% 58.2 % (42.2-75.2); PLT 329 X1000 (130-400); RBC 3.91 XMIL (4.7-6.1); RDW 14.4 % (11.5-14.5); WBC 8.77 X1000 (4.8-10.8)
[2018-12-06 06:12] LABS: AGAP 8; BUN 14 mg/dL (8-22); CALCIUM 7.6 mg/dL (8.8-10.2); CHLORIDE 108 mmol/L (98-107); COSMO 281; CREATININE 0.9 mg/dL (0.7-1.2); ESTIMATED GFR > 60; GLUCOSE 147 mg/dL (70-104); POTASSIUM 3.2 mmol/L (3.5-5.1); SODIUM 139 mmol/L (136-145); TCO2 23 mmol/L (25-35)
[2018-12-06 06:16] LABS: HEMOGLOBIN A1C 5.1 % (4.8-6.0)
[2018-12-06 06:48] LABS: BANDS 6 % (0-1); EOS 2 % (1-10); LYMPHS 16 % (21-51); MONO 12 % (1-9); SEGS 64 % (42-75)
[2018-12-06] MEDS ORDERED: KLOR-CON PO ONE (09:11)
[2018-12-06] MEDS: NS 1,000 ML IV SCH (10:04)
--- NOTE | 2018-12-06 10:34 | PROGRESS NOTE ---
DATE: 12/06/2018 SUBJECTIVE: This patient is resting comfortably in bed. He is still complaining of abdominal pain and having diarrhea. He is hypokalemic, I will replace the potassium. I will continue with same management. WBC normalized today. OBJECTIVE: Vital Signs: Temperature 97.3 degrees, pulse 76, respiratory rate 16, blood pressure 150/75, oxygen saturation 94% on 3 L of nasal cannula. HEENT: Head normocephalic, no trauma. PERRLA. Neck: Supple. No JVD. No masses. Central trachea. Chest: Clear to auscultation. Some crepitus at the bases. Prolonged expiratory phase. Abdomen: Soft, generalized tenderness to palpation, a little bit distended. Positive bowel sounds but hyperactive. Inguinal hernia. Genitourinary: He has a right testicle that is enlarged but is not painful to palpation. No signs of infection or redness. Extremities: No edema. No clubbing. No cyanosis. Neurological: The patient is alert. He is oriented x3. No focal deficits. LABORATORY DATA: WBC 8.7, hemoglobin 11.2, hematocrit 34.3, platelets 329,000. Sodium 139, potassium 3.2, chloride 108, bicarbonate 23, BUN 14, creatinine 0.9, glucose 147, calcium 7.6. ASSESSMENT AND PLAN: 1. Clostridium difficile colitis secondary to antibiotic use. Continue with p.o. vancomycin and IV Flagyl, continue with IV fluids as well. I think he is getting better, but he is still having abdominal pain and large bowel movements which are liquid. 2. Leukocytosis secondary to #1, resolved. 3. Peripheral vascular disease status post femoral-popliteal bypass by Dr. Encinas in early October. Aware. 4. Treatment for hospital-acquired pneumonia, resolved. 5. Chronic obstructive pulmonary disease on home O2. Aware. 6. Tobacco use and abuse. This patient has been advised against tobacco use. I will continue with daily cessation education. 7. Right testicle swelling. A scrotal ultrasound showed a large cyst. Probably this is a spermatocele. He will need to follow up with Urology as an outpatient. cc: Mathew Hughes MD
[2018-12-06] MEDS: ZOFRAN IV PRN (23:38)
[2018-12-07] MEDS ORDERED: CARDIZEM IV ONE (00:30)
--- NOTE | 2018-12-07 00:30 | EKG Report ---
Test Performed on : 12/07/2018 00:22:08 AM Test Reason : afib Blood Pressure : / mmHG Vent. Rate : 153 BPM Atrial Rate : 089 BPM P-R Int : 000 ms QRS Dur : 112 ms QT Int : 306 ms P-R-T Axes : 000 -65 101 degrees QTc Int : 488 ms Critical Test Result: High HR Atrial fibrillation. with rapid ventricular response. Left axis deviation Anterior infarct , age undetermined Abnormal ECG Confirmed by Say LINDSEY, Humberto Tariq ([id number]) on 12/07/2018 10:52:06 AM
[2018-12-07] MEDS: NS 1,000 ML IV SCH ×3 (01:16→22:38)
[2018-12-07] MEDS: VANCOCIN PO SCH ×4 (01:17→20:14)
[2018-12-07] MEDS: LOVENOX SUBQ SCH (01:18)
[2018-12-07] MEDS: CARDIZEM 125 MG/D5W 125 MG/125 ML IVPB IV SCH ×2 (01:19→10:39)
[2018-12-07] MEDS: FLAGYL 500 MG/NS 500 MG/100 ML IVPB IV SCH ×4 (03:36→20:14)
[2018-12-07] MEDS: PERCOCET-10 PO PRN ×5 (03:42→20:20)
[2018-12-07 07:06] LABS: AGAP 10; BUN 11 mg/dL (8-22); CALCIUM 7.8 mg/dL (8.8-10.2); CHLORIDE 112 mmol/L (98-107); COSMO 285; CREATININE 0.8 mg/dL (0.7-1.2); ESTIMATED GFR > 60; GLUCOSE 148 mg/dL (70-104); MAGNESIUM 1.5 mg/dL (1.5-2.7); PHOSPHORUS 2.3 mg/dL (2.7-4.5); POTASSIUM 3.3 mmol/L (3.5-5.1); SODIUM 142 mmol/L (136-145); TCO2 20 mmol/L (25-35)
[2018-12-07] MEDS ORDERED: MAGNESIUM SULFATE 2 GM/S.W.I. 2 GM/50 ML IVPB IV ONE (08:40)
[2018-12-07] MEDS ORDERED: POTASSIUM PHOSPHATE 15 MMOL in NS 250 ML IV ONE (08:41)
--- NOTE | 2018-12-07 08:57 | PROGRESS NOTE ---
DATE: 12/07/2018 SUBJECTIVE: The patient is resting comfortably in bed. Apparently, his diarrhea has slowed down but he started having atrial fibrillation, RVR. He has been transferred to the PVC unit and placed on a Cardizem drip. OBJECTIVE: Vital Signs: Temperature 97.7 degrees, pulse 104, respiratory rate 18, blood pressure 132/84, oxygen saturation 95% on 2 L of nasal cannula. HEENT: Head normocephalic. No trauma. PERRLA. Neck: Supple. No JVD. No masses. Central trachea. Chest: Clear to auscultation. Some crepitus at the bases. Prolonged expiratory phase. Abdomen: Soft. Generalized tenderness to palpation. It is a little bit distended but positive bowel sounds which are hyperactive. Cardiovascular: Irregularly irregular rate and rhythm, tachycardic. Inguinal Area: This patient has an enlarged right testicle that is not painful to palpation or mobilization. No signs of infection. Extremities: No edema, no clubbing, no cyanosis. Neurological Examination: The patient is awake, alert, and oriented x3. No focal deficits. Laboratory: Sodium 142, potassium 3.3, chloride 112, bicarbonate 20, BUN 11, creatinine 0.8, glucose 148, calcium 7.8, phosphorus 2.3, magnesium 1.5. ASSESSMENT AND PLAN: 1. Clostridium difficile colitis secondary to antibiotic use. Continue with oral vancomycin and intravenous Flagyl. Continue with intravenous fluids. This is getting better. Diarrhea has been improving. 2. Leukocytosis secondary to #1, resolved. 3. Paroxysmal atrial fibrillation with rapid ventricular response. I am not quite sure if this is his first episode or if he has been having this kind of problem before. We will continue to monitor. He has been placed on a Cardizem drip and cardiology department will evaluate this patient. 4. Previous history of hospital-acquired pneumonia, resolved. 5. Peripheral vascular disease, status post femoral-popliteal bypass by Dr. Encinas in early October. Aware. 6. Chronic obstructive pulmonary disease, on home oxygen. Aware. 7. Tobacco use and abuse. This patient has been highly advised against tobacco use. I will continue with daily cessation education. 8. Right testicle swelling. A scrotal ultrasound showed a large cyst. Probably, this is a spermatocele. He will need to follow up with urology as an outpatient. 9. Hypomagnesemia, hypophosphatemia, and hypokalemia. I will replace them. cc: Mathew Hughes MD
[2018-12-07] MEDS: ZOFRAN IV PRN (09:36)
[2018-12-07] MEDS: PRILOSEC PO SCH (10:39)
[2018-12-07] MEDS: LOPRESSOR PO SCH ×2 (14:56→20:14)
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
[2018-12-07 15:24] LABS: INR 1.31; PROTIME 16.5 Seconds (11.0-16.0)
[2018-12-07] MEDS: COUMADIN PO SCH (20:14)
[2018-12-08] MEDS: LOVENOX SUBQ SCH
[2018-12-08] MEDS: PERCOCET-10 PO PRN ×5 (01:15→22:21)
[2018-12-08] MEDS: VANCOCIN PO SCH ×4 (01:15→20:15)
[2018-12-08] MEDS: CARDIZEM 125 MG/D5W 125 MG/125 ML IVPB IV SCH (01:19)
[2018-12-08] MEDS: FLAGYL 500 MG/NS 500 MG/100 ML IVPB IV SCH ×4 (02:26→22:22)
[2018-12-08 06:24] LABS: BASO# 0.06 X1000 (0.0-0.2); BASO% 0.7 % (0.0-0.8); EOS# 0.25 X1000 (0.0-0.7); EOS% 3.1 % (0.0-10.0); HEMOGLOBIN 10.8 g/dL (14.0-18.0); IMM GRAN# 0.13 X1000 (0.0-0.04); IMM GRAN% 1.6 % (0.0-0.5); LYMPH# 1.52 X1000 (1.2-3.4); LYMPH% 18.6 % (20.5-51.1); MCH 28.3 PG (27-31); MCHC 31.8 g/dL (33-37); MCV 89.2 FL (81-99); MONO# 1.44 X1000 (0.11-0.59); MONO% 17.6 % (1.7-9.3); MPV 8.4 FL (7.4-10.4); NEUT# 4.79 X1000 (1.4-6.5); NEUT% 58.4 % (42.2-75.2); PLT 379 X1000 (130-400); RBC 3.81 XMIL (4.7-6.1); WBC 8.19 X1000 (4.8-10.8)
[2018-12-08 06:27] LABS: INR 1.49; PROTIME 18.3 Seconds (11.0-16.0)
[2018-12-08] MEDS: PRILOSEC PO SCH (06:36)
[2018-12-08 06:40] LABS: AGAP 10; BUN 10 mg/dL (8-22); CALCIUM 7.6 mg/dL (8.8-10.2); CHLORIDE 110 mmol/L (98-107); COSMO 276; CREATININE 0.9 mg/dL (0.7-1.2); ESTIMATED GFR > 60; GLUCOSE 120 mg/dL (70-104); MAGNESIUM 1.7 mg/dL (1.5-2.7); PHOSPHORUS 2.5 mg/dL (2.7-4.5); POTASSIUM 3.7 mmol/L (3.5-5.1); SODIUM 138 mmol/L (136-145); TCO2 18 mmol/L (25-35)
[2018-12-08] MEDS: LOPRESSOR PO SCH ×2 (09:19→20:15)
--- NOTE | 2018-12-08 10:30 | PROGRESS NOTE ---
DATE: 12/08/2018 SUBJECTIVE: This patient is resting comfortably in bed. Apparently, the diarrhea is much better. He had a couple bowel movements, but they were more formed during the night, and his abdominal pain is better as well. His atrial fibrillation is rate controlled. He is still on the Cardizem drip. I will continue with the same management. Cardiology on board. OBJECTIVE: Vital Signs: Temperature 98.1 degrees, pulse 84, respiratory rate 20, blood pressure 151/82, oxygen saturation 97% on 4 L of nasal cannula. HEENT: Head normocephalic. No trauma. PERRLA. Neck: Supple. No JVD. No masses. Central trachea. Chest: Clear to auscultation. Some crepitus at the bases. Prolonged expiratory phase. Abdomen: Soft. He has some discomfort to palpation at the level of the periumbilical area. His bowel sounds are still hyperactive. Cardiovascular: Irregularly irregular rate and rhythm. Rate controlled. Inguinal Area: This patient has an enlarged right testicle that is not painful to palpation or mobilization. No signs of infection. Extremities: No edema, no clubbing, no cyanosis. Neurological: The patient is awake, alert, and oriented x3. No focal deficits. LABORATORY DATA: WBC 8.1, hemoglobin 10.8, hematocrit 34, platelets 379,000. Sodium 138, potassium 3.7, chloride 110, bicarbonate 18, BUN 10, creatinine 0.9, glucose 120, calcium 7.6. Phosphorus 2.5, magnesium 1.7. ASSESSMENT AND PLAN: 1. Clostridium difficile colitis secondary to antibiotic use. He has been placed on oral vancomycin and intravenous Flagyl. Probably, this patient will need to be discharged only on one of those medications, probably is going to be Flagyl. I am not quite sure if he can afford the vancomycin. 2. Leukocytosis, secondary to #1, resolved. 3. Paroxysmal atrial fibrillation with rapid ventricular response, rate controlled. Cardiology on board. He is still on the Cardizem drip. Hopefully, this patient can be discharged in the next 24 hours. 4. Previous history of hospital-acquired pneumonia, resolved. 5. Peripheral vascular disease, status post femoropopliteal bypass by Dr. Encinas in early October. Aware. 6. Chronic obstructive pulmonary disease, on home oxygen, aware. 7. Tobacco use and abuse. This patient has been highly advised against tobacco use. Will continue with daily cessation education. 8. Right testicle swelling. A scrotal ultrasound showed a large cyst, probably this is a spermatocele. He will need to follow up with Urology as an outpatient. 9. Hypomagnesemia, hypophosphatemia, hypokalemia. Phosphorus level is still a little bit low. Magnesium and potassium seem to be normal today. I will monitor. Overall, this patient is doing much better. He is still on the diltiazem drip. Hopefully, we can stop this medication today, and put him on just oral treatment. Clostridium difficile colitis looks much better. I believe this patient can be discharged tomorrow with oral treatment, and follow up as an outpatient with Cardiology Department. This patient has a right kidney mass. As per the ultrasound, it looks like a cyst. It could be a spermatocele. He will need to follow up with the urologist as an outpatient as well. I will try to get an appointment for him. cc: Mathew Hughes MD
[2018-12-08] MEDS: NS 1,000 ML IV SCH (13:15)
--- NOTE | 2018-12-08 13:29 | ECHO REPORT ---
ORDER DATE: 12/08/2018 INDICATION: Atrial fibrillation. FINDINGS: 1. The right atrium is mildly enlarged at 4.5 cm. 2. Moderate tricuspid regurgitation. RV systolic pressure of 75 suggesting pulmonary hypertension. 3. Normal RV size and systolic function. 4. No significant pulmonic insufficiency. 5. Normal left atrial size at 3.2 cm. 6. No mitral valve prolapse. Mild mitral regurgitation. No mitral stenosis. 7. Normal LV size, end-diastolic dimension of 4.3. Normal wall thicknesses with a posterior and interventricular septal wall thickness of 1.1 cm each. Normal LV systolic function. The estimated EF is 55% with normal wall motion. 8. Aortic valve opens well. It is somewhat sclerotic but does not appear to be stenotic. No insufficiency. 9. Aorta appears normal in visualized segments. 10. No pericardial effusion seen. cc: MD Eddie Humphrey MD
--- NOTE | 2018-12-08 14:15 | EKG Report ---
Test Performed on : 12/08/2018 1:54:03 PM Test Reason : atrial fibrillation Blood Pressure : / mmHG Vent. Rate : 077 BPM Atrial Rate : 500 BPM P-R Int : 000 ms QRS Dur : 106 ms QT Int : 414 ms P-R-T Axes : 000 -24 071 degrees QTc Int : 468 ms Atrial fibrillation. with a competing junctional pacemaker. Low voltage QRS Septal infarct (cited on or before 13-JUL-2009) Abnormal ECG When compared with ECG of 07-DEC-2018 00:22, Vent. rate has decreased BY 76 BPM Questionable change in initial forces of Anterior leads Confirmed by Say LINDSEY, Humberto Tariq ([id number]) on 12/09/2018 7:18:29 AM
--- NOTE | 2018-12-08 14:40 | PROGRESS NOTE ---
DATE: 12/08/2018 SUBJECTIVE: The patient continues without shortness of breath or chest discomfort on room air presently. He inconsistently uses nasal cannula. OBJECTIVE: Vital Signs: Blood pressure 153/84, heart rate 65, oxygen saturation 94%. Neck: There is no significant jugular venous distention. Chest: Clear to auscultation. Cardiac: Regular rate and rhythm without appreciable murmur or gallop. Extremities: Without edema. IMAGING AND LABORATORY DATA: Laboratory data includes sodium 138, potassium 3.7, chloride 110, carbon dioxide 18, BUN 10, creatinine 0.9, glucose 120. ProTime 18.3, INR 1.5. White blood cell count 8.2, hematocrit 34.0, hemoglobin 10.8, platelet count 379,000. Repeat ECG pending. Echocardiography indicates normal left ventricular ejection fraction. IMPRESSION: 1. Persistent atrial fibrillation. Rate controlled. 2. Currently admitted with Clostridium difficile colitis. 3. Chronic obstructive pulmonary disease. 4. Peripheral vascular disease with recent right vodrots-xj-eftfhpeht bypass. RECOMMENDATIONS: 1. Continue to manage with metoprolol for rate control. 2. Anticoagulation indicated given thromboembolic risk related to atrial fibrillation. Continue warfarin with target INR of 2.0 to 3.0. Patient counseled regarding need to be compliant with warfarin, associated dietary restrictions, and to restrict alcohol intake. 3. Patient strongly advised to limit alcohol intake to no more than a 6-pack of beer weekly or equivalent, or to discontinue alcohol altogether. 4. Smoking cessation also recommended. cc: Eddie Galan MD
[2018-12-08] MEDS: COUMADIN PO SCH (20:15)
[2018-12-09] MEDS: LOVENOX SUBQ SCH (00:16)
[2018-12-09] MEDS: PERCOCET-10 PO PRN ×4 (02:31→14:36)
[2018-12-09] MEDS: VANCOCIN PO SCH ×3 (02:32→14:37)
[2018-12-09] MEDS: NS 1,000 ML IV SCH ×2 (02:33→15:57)
[2018-12-09] MEDS: FLAGYL 500 MG/NS 500 MG/100 ML IVPB IV SCH ×5 (04:13→15:39)
[2018-12-09 05:47] LABS: BASO# 0.04 X1000 (0.0-0.2); BASO% 0.6 % (0.0-0.8); EOS% 2.8 % (0.0-10.0); IMM GRAN# 0.25 X1000 (0.0-0.04); IMM GRAN% 3.5 % (0.0-0.5); INR 2.92; LYMPH# 1.26 X1000 (1.2-3.4); LYMPH% 17.5 % (20.5-51.1); MCH 28.2 PG (27-31); MCHC 32.4 g/dL (33-37); MCV 87.2 FL (81-99); MONO# 1.26 X1000 (0.11-0.59); MONO% 17.5 % (1.7-9.3); MPV 8.6 FL (7.4-10.4); NEUT# 4.21 X1000 (1.4-6.5); NEUT% 58.1 % (42.2-75.2); PLT 366 X1000 (130-400); PROTIME 31.3 Seconds (11.0-16.0); RDW 14.8 % (11.5-14.5); WBC 7.22 X1000 (4.8-10.8)
[2018-12-09 06:11] LABS: BANDS 2 % (0-1); EOS 4 % (1-10); LYMPHS 10 % (21-51); MONO 12 % (1-9); SEGS 60 % (42-75)
[2018-12-09 06:15] LABS: AGAP 11; BUN 6 mg/dL (8-22); CALCIUM 7.3 mg/dL (8.8-10.2); CHLORIDE 107 mmol/L (98-107); COSMO 272; CREATININE 0.8 mg/dL (0.7-1.2); ESTIMATED GFR > 60; GLUCOSE 113 mg/dL (70-104); MAGNESIUM 1.5 mg/dL (1.5-2.7); PHOSPHORUS 1.9 mg/dL (2.7-4.5); POTASSIUM 3.7 mmol/L (3.5-5.1); SODIUM 137 mmol/L (136-145); TCO2 19 mmol/L (25-35)
[2018-12-09] MEDS: PRILOSEC PO SCH (06:35)
[2018-12-09] MEDS: LOPRESSOR PO SCH (08:43)
--- NOTE | 2018-12-09 15:11 | PROGRESS NOTE ---
DATE: 12/09/2018 SUBJECTIVE: Patient continues without shortness of breath or chest discomfort on room air. OBJECTIVE: Blood pressure 168/87, heart rate 79 with ECG monitor showing atrial fibrillation with controlled rate. Oxygen saturation 98%. There is no significant jugular venous distention.Chest: Clear to auscultation. Cardiac Exam: Reveals an irregular rate and rhythm without appreciable murmur or gallop. There is no evidence of peripheral edema. LABORATORY DATA: Includes white blood cell count 7.22, hematocrit 34.0, hemoglobin 11.0, platelet count 366,000. Pro time 31.3, INR 2.9. Sodium 137, potassium 3.7, chloride 107, carbon dioxide 19, BUN 6, creatinine 0.8, glucose 113. IMPRESSION: 1. Persistent atrial fibrillation. 2. Currently admitted with Clostridium difficile colitis. 3. Chronic chronic obstructive pulmonary disease. 4. Peripheral vascular disease with recent right femoral to popliteal bypass. RECOMMENDATIONS: 1. Continue to manage with metoprolol for rate control. 2. Anticoagulation given thromboembolic risk related to atrial fibrillation. Continue warfarin with target INR of 2.0 to 3.0. Patient counseled regarding need to be compliant with warfarin, associated dietary restrictions, and to restrict alcohol intake. 3. Smoking cessation strongly advised. 4. The patient appears to be approaching the point where he could reasonably be discharged home from a cardiovascular standpoint. cc: Eddie Galan MD
[2018-12-09 16:18] VITALS: BP 157/2
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
[2018-12-09] MEDS ORDERED: COUMADIN PO SCH (21:00)
== END 2018-12-09 17:15 | disposition home or self-care (01) | DRG 372 ==
LOC: ED 10:25 → SUATTDRO 14:33 → EDIPHOLD 14:33 → 1N 17:02 → 2N 12-07 01:09
PROVIDERS: ATTEND Emergency Medicine

== ENCOUNTER 2019-06-02 11:43 | Inpatient (IN) ==
[2019-06-02] MEDS ORDERED: ROCEPHIN 1 GM in NS 50 ML IV ONE ×4 (11:52)
[2019-06-02] MEDS ORDERED: SOLU-MEDROL IV ONE (11:52)
[2019-06-02] MEDS ORDERED: NS 1,000 ML IV ONE (11:52)
[2019-06-02 12:18] LABS: BE 3.6 mmoll (-3.0-3.0); BLOOD TYPE ARTERIAL; HCO3-(ACT) 27.6 mmoll (20.0-26.0); METHB 0.8 % (0.0-1.5); O2(CT) 17.4 mL/dL (15.0-23.0); O2HB 93.4 % (95.0-99.0); PCO2(98.6) 34 mmHg (35-45); PO2(98.6) 75 mmHg (60-100); SAMPLE BLOOD; SAO2 96.2 % (95.0-100.0); THB 13.2 g/dL (11.5-17.4)
[2019-06-02 12:20] LABS: ALLEN TEST NO; MODALITY CANNULA
--- NOTE | 2019-06-02 12:29 | Diag Imaging Result Doc PS360 ---
EXAM: CHEST-PORTABLE 06/02/2019 HISTORY: cough TECHNIQUE: AP portable at 1215 COMMENT: Compared to the previous study of 12/05/2018 there is more pleural fluid on the left. There continues to be diffuse coarse pulmonary opacity and there is now hazy opacity over the left upper lobe which was not previously the case. There is increased atelectasis or pneumonia in the left lower lobe. IMPRESSION: Left pleural effusion. Atelectasis and/or pneumonia in the left lower lobe and right upper lobe. Pulmonary fibrosis. Electronically signed by Scott Logan 06/02/2019 12:27 PM
[2019-06-02 12:31] LABS: BASO# 0.05 X1000 (0.0-0.2); BASO% 0.4 % (0.0-0.8); EOS# 0.14 X1000 (0.0-0.7); EOS% 1.1 % (0.0-10.0); HEMATOCRIT 40.2 % (42.0-52.0); HEMOGLOBIN 12.6 g/dL (14.0-18.0); IMM GRAN# 0.11 X1000 (0.0-0.04); IMM GRAN% 0.9 % (0.0-0.5); LYMPH% 15.9 % (20.5-51.1); MCHC 31.3 g/dL (33-37); MCV 79.6 FL (81-99); MONO# 1.47 X1000 (0.11-0.59); MONO% 11.7 % (1.7-9.3); MPV 8.6 FL (7.4-10.4); NEUT# 8.79 X1000 (1.4-6.5); PLT 556 X1000 (130-400); RBC 5.05 XMIL (4.7-6.1); RDW 17.9 % (11.5-14.5); WBC 12.56 X1000 (4.8-10.8)
[2019-06-02 12:47] LABS: AGAP 11; ALBUMIN 2.9 g/dL (3.5-5.0); ALKALINE PHOSPHATASE 80 U/L (32-122); BUN 19 mg/dL (8-22); CALCIUM 8.4 mg/dL (8.8-10.2); CHLORIDE 98 mmol/L (98-107); COSMO 276; CREATININE 0.9 mg/dL (0.7-1.2); ESTIMATED GFR > 60; GLUCOSE 130 mg/dL (70-104); GOT 16 U/L (10-34); GPT 10 U/L (10-44); POTASSIUM 3.6 mmol/L (3.5-5.1); SODIUM 136 mmol/L (136-145); TCO2 28 mmol/L (25-35); TOTAL PROTEIN 7.2 g/dL (6.3-8.3)
[2019-06-02 13:09] LABS: INR 1.2; PROTIME 15.9 Seconds (11.0-16.0); PTT 28.6 Seconds (22.3-41.8)
[2019-06-02 13:38] LABS: URINE SOURCE CLEAN CATCH
--- NOTE | 2019-06-02 13:44 | EKG Report ---
Test Performed on : 06/02/2019 1:00:23 PM Test Reason : sob Blood Pressure : / mmHG Vent. Rate : 090 BPM Atrial Rate : 107 BPM P-R Int : 000 ms QRS Dur : 110 ms QT Int : 400 ms P-R-T Axes : 000 -04 088 degrees QTc Int : 489 ms Atrial fibrillation. Septal infarct (cited on or before 13-JUL-2009) Abnormal ECG When compared with ECG of 08-DEC-2018 13:54, No significant change was found Unconfirmed Result
[2019-06-02 14:00] LABS: BILIRUBIN URINE NEGATIVE (NEGATIVE); BLOOD URINE NEGATIVE (NEGATIVE); COLOR YELLOW; GLUCOSE URINE NEGATIVE (NEGATIVE); KETONE URINE NEGATIVE (NEGATIVE); LEUKOCYTES URINE NEGATIVE (NEGATIVE); NITRITE URINE NEGATIVE (NEGATIVE); PH URINE 6.5; PROTEIN URINE TRACE mg/dL (NEGATIVE); SP GRAVITY URINE 1.019; TURBIDITY URINE CLEAR (CLEAR); UROBILINOGEN URINE 4 mg/dL (NORMAL)
[2019-06-02 14:04] LABS: UR EPITHELIAL CELLS <10 /HPF (<10); URINE BACTERIA NEGATIVE /HPF; URINE RBC <10 /HPF (<10); URINE WBC <10 /HPF (<10)
[2019-06-02 14:08] LABS: URINE CASTS NONE SEEN; URINE YEAST NONE SEEN
[2019-06-02 14:09] LABS: URINE CRYSTALS NONE SEEN; URINE SMALL ROUND CELLS NONE SEEN
--- NOTE | 2019-06-02 15:18 | PROVIDER DOCUMENTATION ---
This chart was entered by Stacy Catherine Scribe, acting as scribe for She Prescott MD. HPI-Respiratory General - General Stated Complaint: SOB Time Seen by Provider: 06/02/19 11:51 Source: patient, EMS Allergies/Adverse Reactions: Patient Allergies Allergy/AdvReac Type Severity Reaction Status Date / Time codeine Allergy CONSTIPATIO Verified 06/02/19 12:32 N Home Medications: Home Medication List Medication Instructions Recorded Confirmed Last Taken Type Amlodipine Besylate 5 mg PO DAILY 06/02/19 06/02/19 Unknown History Atenolol 50 mg PO BID 06/02/19 06/02/19 Unknown History Oxycodone HCl/Acetaminophen 1 tab PO TID 06/02/19 06/02/19 Unknown History [Oxycodone-Acetaminophen 10-325] - History of Present Illness-Resp Nature of Presenting Problem: Pt is a 78 yowm brought to the ED by EMS with c/o of shortness of breath. Pt denies fever and cough. Pt states that he was wheezing earlier this morning. Pt currently smokes, has a hx of COPD and is on home O2. Pt is alert and nontoxic in appearance. Quality of Pain: reports: tightness Severity in ED: reports: mild Onset/Duration: reports: gradual, other (last couple of weeks) Timing: reports: still present, constant, getting worse Context: denies: recent foreign travel Cough Quality/Degree: reports: productive cough (with yellow sputem) Current Respiratory Medication Therapy: Initiated see nurses note Modifying Factors: worse with: exertion Associated Symptoms: reports: cough (productive with yellow sputem), shortness of breath, wheezing. denies: dizziness, fever/chills Review of Systems - Adult - REVIEW OF SYSTEMS - ADULT Constitutional: denies: chills, fever Eyes: reports: no symptoms reported Ears, Nose, Mouth & Throat: reports: no symptoms reported Cardiovascular: denies: chest pain, syncope Respiratory: reports: see HPI, shortness of breath, wheezing. denies: cough Gastrointestinal: denies: abdominal pain, vomiting Genitourinary: reports: no symptoms reported Musculoskeletal: reports: no symptoms reported Integumentary: reports: no symptoms reported Neurological: reports: no symptoms reported Psychiatric: reports: no symptoms reported Endocrine: reports: no symptoms reported Hematologic/Lymphatic: reports: no symptoms reported Allergic/Immunologic: reports: no symptoms reported All Other Systems: Reviewed and Negative Past History - Adult - PAST MEDICAL HISTORY-ADULT Review of Records: reports: Old Records Reviewed, Nursing Assessment Review, Medications Reviewed, Social history reviewed & non-contributory. Major Childhood Illnesses: reports: denies history Cardiovascular: reports: CAD, HTN Respiratory: reports: COPD Gastrointestinal: reports: denies history Genitourinary: reports: denies history Musculoskeletal: reports: chronic pain Neurological: reports: denies history Endocrine/Immune: reports: denies history Other Conditions: reports: denies history - PRIOR SURGERIES/PROCEDURES Surgical/Procedure History: reports: orthopedic (extremity) - IMMUNIZATION STATUS Childhood Immunizations: See Nurse Assessment Flu Vaccine: See Nurse Assessment - FAMILY HISTORY Family History: reviewed, not pertinent - SOCIAL HISTORY Smoking: cigarettes, greater than 1 pack/day Provider spent 3-5 mins advising pt. on dangers of tobacco.: Discussed manners to quit use, and f/u contacts for add'l counseling. Substance Use: alcohol Alcohol Use Frequency: occasionally Number of drinks per typical drinking period:: 2 drinks Physical Exam-General - PHYSICAL EXAM-ADULT Initial Vital Signs Reviewed: Yes - CONSTITUTIONAL General Appearance: alert - EYES Eyes: PERRL/EOMI, pink conjunctivae - HEAD, EARS, NOSE, MOUTH & THROAT HENMT: normocephalic/atraumatic, moist mucous membranes - NECK Neck: non-tender, full range of motion - RESPIRATORY Respiratory: chest non-tender, decreased breath sounds, accessory muscle use, prolonged expiration, other (distant breath sounds). negative: wheezing - CARDIOVASCULAR Cardiovascular: normal peripheral pulses, tachycardia, other (tachypneic) - GASTROINTESTINAL (ABDOMEN) Abdominal Exam: non tender, soft - MUSCULOSKELETAL Back Exam: no CVA tenderness, no vertebral tenderness Extremity: non-tender - SKIN Integumentary: normal color, normal turgor, warm/dry - NEUROLOGIC Neurologic: grossly normal - PSYCHIATRIC Psych/Mental Status: normal thought content, normal thought process, oriented x 3, anxious Progress - PLAN OF CARE/RESULTS Progress/Plan/Lab Results: Vital Signs - 8 hr 06/02/19 11:40 06/02/19 11:55 06/02/19 12:34 Temperature 98.0 F Pulse Rate 112 H 96 H Respiratory Rate 23 21 Blood Pressure 149/106 145/105 O2 Sat by Pulse Oximetry 92 L 87 L 100 Laboratory Results - last 24 hr 06/02/19 06/02/19 06/02/19 11:00 12:05 12:05 WBC 12.56 H RBC 5.05 Hgb 12.6 L Hct 40.2 L MCV 79.6 L MCH 25.0 L MCHC 31.3 L RDW Std Deviation 17.9 H Plt Count 556 H MPV 8.6 Immature Gran % (Auto) 0.9 H Neut % (Auto) 70.0 Lymph % (Auto) 15.9 L [place] % (Auto) 11.7 H Eos % (Auto) 1.1 Baso % (Auto) 0.4 Immature Gran # (Auto) 0.11 H Neut # (Auto) 8.79 H Lymph # (Auto) 2.00 [place] # (Auto) 1.47 H Eos # (Auto) 0.14 Baso # (Auto) 0.05 PT INR PTT (Actin FS) Specimen Type ARTERIAL Sample Site R BRACHIAL pH 7.50 H pCO2 34 L pO2 75 HCO3 27.6 H Base Excess 3.6 H Oxyhemoglobin 93.4 L ABG O2 Sat (Calculated) 17.4 ABG O2 Saturation 96.2 ABG Carboxyhemoglobin 2.10 ABG Methemoglobin 0.8 Drake Test NO A-a O2 Difference 82.0 Total Hemoglobin 13.2 Lactate 0.80 Liter Flow 2.0 Blood Gas Modality CANNULA FiO2 % 28.0 Sodium 136 Potassium 3.6 Chloride 98 Carbon Dioxide 28 Anion Gap 11 BUN 19 Creatinine 0.9 Estimated GFR/1.73 m2 > 60 BUN/Creatinine Ratio 21 Glucose 130 H Calculated Osmolality 276 Calcium 8.4 L Total Bilirubin 0.50 AST 16 ALT 10 Alkaline Phosphatase 80 Creatine Kinase Troponin T High Sens Cyr-W-Lwdayzrrnbl Pept Total Protein 7.2 Albumin 2.9 L Globulin 4.0 Albumin/Globulin Ratio 1.0 Plasma Lactate Urine Source Urine Color Urine Turbidity Urine pH Ur Specific [place] Urine Protein Ur Glucose (Stick) Ur Ketones (Stick) Urine Blood Urine Nitrite Urine Bilirubin Urobilinogen Dipstick Urine Leukocytes Urine WBC (Auto) Urine RBC (Auto) U Epithel Cells (Auto) Urine Bacteria (Auto) Urine Crystals Small Round Cells Urine Casts Urine Yeast-like Cells 06/02/19 06/02/19 06/02/19 12:05 12:05 12:05 WBC RBC Hgb Hct MCV MCH MCHC RDW Std Deviation Plt Count MPV Immature Gran % (Auto) Neut % (Auto) Lymph % (Auto) [place] % (Auto) Eos % (Auto) Baso % (Auto) Immature Gran # (Auto) Neut # (Auto) Lymph # (Auto) [place] # (Auto) Eos # (Auto) Baso # (Auto) PT INR PTT (Actin FS) Specimen Type Sample Site pH pCO2 pO2 HCO3 Base Excess Oxyhemoglobin ABG O2 Sat (Calculated) ABG O2 Saturation ABG Carboxyhemoglobin ABG Methemoglobin Drake Test A-a O2 Difference Total Hemoglobin Lactate Liter Flow Blood Gas Modality FiO2 % Sodium Potassium Chloride Carbon Dioxide Anion Gap BUN Creatinine Estimated GFR/1.73 m2 BUN/Creatinine Ratio Glucose Calculated Osmolality Calcium Total Bilirubin AST ALT Alkaline Phosphatase Creatine Kinase 27 Troponin T High Sens 16 Vfi-O-Cwkqybbvoix Pept Total Protein Albumin Globulin Albumin/Globulin Ratio Plasma Lactate 1.4 Urine Source Urine Color Urine Turbidity Urine pH Ur Specific [place] Urine Protein Ur Glucose (Stick) Ur Ketones (Stick) Urine Blood Urine Nitrite Urine Bilirubin Urobilinogen Dipstick Urine Leukocytes Urine WBC (Auto) Urine RBC (Auto) U Epithel Cells (Auto) Urine Bacteria (Auto) Urine Crystals Small Round Cells Urine Casts Urine Yeast-like Cells 06/02/19 06/02/19 06/02/19 12:05 12:05 13:25 WBC RBC Hgb Hct MCV MCH MCHC RDW Std Deviation Plt Count MPV Immature Gran % (Auto) Neut % (Auto) Lymph % (Auto) [place] % (Auto) Eos % (Auto) Baso % (Auto) Immature Gran # (Auto) Neut # (Auto) Lymph # (Auto) [place] # (Auto) Eos # (Auto) Baso # (Auto) PT 15.9 INR 1.20 PTT (Actin FS) 28.6 Specimen Type Sample Site pH pCO2 pO2 HCO3 Base Excess Oxyhemoglobin ABG O2 Sat (Calculated) ABG O2 Saturation ABG Carboxyhemoglobin ABG Methemoglobin Drake Test A-a O2 Difference Total Hemoglobin Lactate Liter Flow Blood Gas Modality FiO2 % Sodium Potassium Chloride Carbon Dioxide Anion Gap BUN Creatinine Estimated GFR/1.73 m2 BUN/Creatinine Ratio Glucose Calculated Osmolality Calcium Total Bilirubin AST ALT Alkaline Phosphatase Creatine Kinase Troponin T High Sens Neo-W-Bgwklvjzqwv Pept 3275 H Total Protein Albumin Globulin Albumin/Globulin Ratio Plasma Lactate Urine Source CLEAN CATCH Urine Color YELLOW Urine Turbidity CLEAR Urine pH 6.5 Ur Specific [place] 1.019 Urine Protein TRACE A Ur Glucose (Stick) NEGATIVE Ur Ketones (Stick) NEGATIVE Urine Blood NEGATIVE Urine Nitrite NEGATIVE Urine Bilirubin NEGATIVE Urobilinogen Dipstick 4 A Urine Leukocytes NEGATIVE Urine WBC (Auto) <10 Urine RBC (Auto) <10 U Epithel Cells (Auto) <10 Urine Bacteria (Auto) NEGATIVE Urine Crystals NONE SEEN Small Round Cells NONE SEEN Urine Casts NONE SEEN Urine Yeast-like Cells NONE SEEN Orders Category Date Time Status Cardiac Monitoring NOW Care 06/02/19 12:41 Active Isolation Precautions Setup NOW Care 06/02/19 14:25 Active NEWS Score >or=5:Order NEWS Bundle S.O. NOW Care 06/02/19 12:02 Active Notify Provider of NEWS Score NOW Care 06/02/19 12:41 Active Saline Loc NOW Care 06/02/19 11:52 Active CHEST-PORTABLE [RAD] Stat Exams 06/02/19 11:52 Completed ABG [RESP] Routine Lab 06/02/19 11:00 Completed BLOOD CULTURE [BLDCUL] Stat Lab 06/02/19 12:05 Results BNP [PRO B-NATRIURETIC PEPTIDE] Stat Lab 06/02/19 12:05 Completed CBC WITH DIFF [HEME] Stat Lab 06/02/19 12:05 Completed CK PROFILE [SP CHEM] Stat Lab 06/02/19 12:05 Completed COMPREHENSIVE METABOLIC PANEL [CHEM] Stat Lab 06/02/19 12:05 Completed LACTATE, PLASMA [CHEM] Stat Lab 06/02/19 12:05 Completed MISCELLANEOUS TEST-LAB [RF] Stat Lab 06/02/19 14:24 Uncollected PROTIME WITH INR [COAG] Stat Lab 06/02/19 12:05 Completed PTT [COAG] Stat Lab 06/02/19 12:05 Completed TROPONIN T HIGH SENSITIVITY Stat Lab 06/02/19 12:05 Completed URINALYSIS W/POSS RFLX CULT [URINALYSIS] Stat Lab 06/02/19 13:25 Completed URINE MANUAL MICROSCOPIC [URINALYSIS] Stat Lab 06/02/19 13:25 Completed 0.9% Sodium Chloride Inj [Ns] 1,000 ml Med 06/02/19 11:52 Discontinued IV 999 mls/hr CefTRIAXONE [Rocephin] 1 gm Med 06/02/19 11:52 Discontinued 0.9% Sodium Chloride Inj [Ns] 50 ml IV NOW CefTRIAXONE [Rocephin] 1 gm Med 06/02/19 11:52 Discontinued 0.9% Sodium Chloride Inj [Ns] 50 ml IV NOW Methylprednisolone Sod Succ [Solu-Medrol] Med 06/02/19 11:52 Discontinued 125 mg IV NOW ONE O2 Per Protocol Stat Oth 06/02/19 12:41 Active Pulse Oximetry Stat Oth 06/02/19 11:52 Active EKG [EKG] Stat Ther 06/02/19 12:44 Draft Result Diagrams: 06/02/19 12:05 06/02/19 12:05 - EKG 1 Time of EKG reading by physician:: 13:10 Rate: 90 Rhythm: atrial fibrillation [place]: normal QRS: normal, Q Waves present - XRAY 1 XRAY Study: Chest Impression: See EMR Report ([facility] - [address] [facility], [address], [place] [address] [facility] - [address] [place] [address] Department of Imaging Patient: BECKY LEDESMA Date: 06/02/19#: [id number] : 1940DM Status: PRE ERAcct#: [id number] Age/Sex: 78/MRoom/Bed: Loc: P.ED Ordering Physician: She Prescott MD Family Physician: Reason for Procedure: cough Signed EXAM: CHEST-PORTABLE 06/02/2019 HISTORY: cough TECHNIQUE: AP portable at 1215 COMMENT: Compared to the previous study of 12/05/2018 there is more pleural fluid on the left. There continues to be diffuse coarse pulmonary opacity and there is now hazy opacity over the left upper lobe which was not previously the case. There is increased atelectasis or pneumonia in the left lower lobe. IMPRESSION: Left pleural effusion. Atelectasis and/or pneumonia in the left lower lobe and right upper lobe. Pulmonary fibrosis. Electronically signed by Scott Logan 06/02/2019 12:27 PM 06/02/19 1227 Interpreting Physician: Scott Logan MD Dictated Date/Time: 06/02/19 1226 cc: She Prescott MD;) - CONSULTS/PCP/HOSPITALIST Notification #1 *Consult/PCP/Hospitalist*: Dr. Dumont Time Discussed: 14:32 Consult Disposition: Admit Departure - Departure Date of Disposition Decision: 06/02/19 Time of Disposition Decision: 15:17 DIAGNOSIS: COPD exacerbation Disposition: ADMITTED INPATIENT 09 Certified Medical Emergency: Emergent Condition: Good Referrals and Follow-Ups: Daniel Carranza MD [Primary Care Provider] - - Critical Care Note This patient required my direct & personal management of CC.: No Attestation - Physician/ GARIMA Attestation Patient care was provided by Advanced Practice Provider:: No The physician spent face to face time with patient:: Yes Advanced Practice Provider documentation review:: Supervising physician onsite and consulted in the evaluation and care of this patient. The physician did have a face to face encounter with the patient. This chart was documented by the indicated scribe, (Stacy Catherine, Tia) and accurately reflects the services I performed and decisions made by me, She Prescott MD, as attested by the provider's signature.
[2019-06-02] MEDS ORDERED: PERCOCET-10 PO ONE (15:39)
[2019-06-02] MEDS ORDERED: ZITHROMAX PO ONE (17:04)
[2019-06-02] MEDS ORDERED: ZOFRAN IV PRN (17:04)
[2019-06-02] MEDS ORDERED: TYLENOL PO PRN (17:04)
[2019-06-02] MEDS ORDERED: NS 1,000 ML IV SCH (17:15)
[2019-06-02] MEDS ORDERED: COMBIVENT RESPIMAT INHALER INH SCH (17:15)
[2019-06-02] MEDS ORDERED: VENTOLIN HFA ONE (17:45)
[2019-06-02] MEDS: VENTOLIN HFA INH PRN ×2 (17:53→22:42)
[2019-06-02] MEDS ORDERED: TENORMIN PO SCH (21:00)
[2019-06-02] MEDS: PERCOCET-10 PO PRN (21:58)
[2019-06-03] MEDS: VENTOLIN HFA INH PRN ×4 (04:05→21:40)
[2019-06-03 06:00] LABS: HEMATOCRIT 36.6 % (42.0-52.0); HEMOGLOBIN 11.6 g/dL (14.0-18.0); MCH 25.3 PG (27-31); MCHC 31.7 g/dL (33-37); MCV 79.9 FL (81-99); MPV 8.5 FL (7.4-10.4); RBC 4.58 XMIL (4.7-6.1); RDW 17.6 % (11.5-14.5); WBC 17.63 X1000 (4.8-10.8)
[2019-06-03] MEDS: PERCOCET-10 PO PRN ×3 (06:00→21:26)
[2019-06-03 06:39] LABS: HEMOGLOBIN A1C 6.2 % (4.8-6.0)
[2019-06-03 06:50] LABS: AGAP 9; ALBUMIN 2.8 g/dL (3.5-5.0); ALKALINE PHOSPHATASE 75 U/L (32-122); BUN 22 mg/dL (8-22); CALCIUM 8.4 mg/dL (8.8-10.2); CHLORIDE 104 mmol/L (98-107); COSMO 284; CREATININE 0.8 mg/dL (0.7-1.2); ESTIMATED GFR > 60; GLUCOSE 194 mg/dL (70-104); GOT 12 U/L (10-34); GPT 9 U/L (10-44); MAGNESIUM 1.9 mg/dL (1.5-2.7); POTASSIUM 4.3 mmol/L (3.5-5.1); SODIUM 138 mmol/L (136-145); TCO2 25 mmol/L (25-35); TOTAL PROTEIN 6.7 g/dL (6.3-8.3)
[2019-06-03] MEDS: ZITHROMAX PO SCH (09:16)
[2019-06-03] MEDS: NORVASC PO SCH (09:16)
[2019-06-03] MEDS: TENORMIN PO SCH ×2 (09:16→21:26)
[2019-06-03] MEDS ORDERED: TUMS PO ONE (12:30)
[2019-06-03] MEDS: ROCEPHIN 1 GM in NS 50 ML IV SCH (12:44)
--- NOTE | 2019-06-03 21:03 | PROGRESS NOTE ---
DATE: 06/03/2019 SUBJECTIVE: He has no current new complaints. Still having some shortness of breath, cough, and congestion. Still having severe back and leg pain that he feels as though he needs IV pain medication. PHYSICAL EXAMINATION: Vital Signs: Reviewed. General: He is awake, alert. He is in mild current respiratory distress, but actually improved a little from last night in the ER. HEENT: Normocephalic. Neck: Supple. Cardiovascular: Irregular rhythm, currently rate controlled. Chest: Decreased but improvement wheezing, but again improved. No crackles. Abdomen: Soft. Nondistended. Extremities: Moves all extremities. ASSESSMENT: 1. Chronic obstructive pulmonary disease with exacerbation. 2. Right upper and left lower lobe pneumonia. 3. Atrial fibrillation. 4. Chronic pain. PLAN: We are going to continue antibiotics, breathing treatments and oxygen. Again discussed with patient that IV pain medication is not an acceptable option. We will follow. cc: Braydon Rousseau MD
--- NOTE | 2019-06-03 21:26 | HISTORY AND PHYSICAL ---
CHIEF COMPLAINT: Shortness of breath. HISTORY OF PRESENT ILLNESS: The patient is a 78-year-old male who presented to the emergency department with increased work of breathing, cough, congestion, increased shortness of breath. Denies any fevers or chills. Denies any exposure to COVID. States he has been wheezing at home. He still smokes. ALLERGIES: Codeine causing constipation. MEDICATIONS: Amlodipine 5 daily, atenolol and Percocet. REVIEW OF SYSTEMS: Denies fevers or chills. Does have increased cough, increased work of breathing, increased shortness of breath. Denies any dysuria, frequency, urgency. Denies melena, hematochezia. Does have chronic constipation. Denies diarrhea. Denies headaches, blurred vision, change in vision. Notes that he has chronic, sometimes severe pain, in his back and lower extremities and thinks that he may need IV pain medication. PAST MEDICAL HISTORY: Known coronary artery disease, hypertension, COPD. SOCIAL HISTORY: Continues to smoke greater than a pack a day and has for greater than 40 years. Does drink alcohol occasionally, 1 or 2 drinks a day. FAMILY HISTORY: Noncontributory. PHYSICAL EXAM: VITAL SIGNS: Temperature 98 degrees, pulse 96, respiratory 23, BP 149/106, saturation 87% on room air. GENERAL: Patient is awake. He is in mild respiratory distress. He is alert and oriented. HEENT: Normocephalic. NECK: Supple. CARDIOVASCULAR: Regular rate. CHEST: Decreased breath sounds. Positive wheezing, mildly labored. ABDOMEN: Soft, nondistended, nontender. EXTREMITIES: Moves all extremities. No edema. NEUROLOGIC: No focal changes. ASSESSMENT: 1. Ascites. Mild leukocytosis, white count 12. 2. Chronic obstructive pulmonary disease with exacerbation. 3. Mild hyperglycemia. 4. Atrial fibrillation. 5. Left pleural effusion. 6. Probable pneumonia left lower lobe and right upper lobe. PLAN: We are going to admit patient to the hospital, antibiotics, steroids, breathing treatments. He is on Percocet at home. We will continue this but he certainly does not need IV pain medication given his COPD exacerbation. Discussed with patient. Will follow. cc: Braydon Rousseau MD
[2019-06-04] MEDS: VENTOLIN HFA INH PRN (04:24)
[2019-06-04] MEDS: PERCOCET-10 PO PRN ×3 (04:32→19:36)
[2019-06-04] MEDS: DUONEB (A & A) INH PRN (08:30)
[2019-06-04] MEDS: ZITHROMAX PO SCH (08:36)
[2019-06-04] MEDS: TENORMIN PO SCH ×2 (08:36→20:58)
[2019-06-04] MEDS: NORVASC PO SCH (08:36)
[2019-06-04 08:58] LABS: BE 2.8 mmoll (-3.0-3.0); BLOOD TYPE ARTERIAL; HCO3-(ACT) 26.8 mmoll (20.0-26.0); METHB 0.3 % (0.0-1.5); O2(CT) 14.3 mL/dL (15.0-23.0); PCO2(98.6) 40 mmHg (35-45); SAMPLE BLOOD; SAO2 85.9 % (95.0-100.0); THB 12.1 g/dL (11.5-17.4); pH(98.6) 7.44 (7.35-7.45)
[2019-06-04 09:03] LABS: ALLEN TEST YES; MODALITY VENTIMASK; O2HB 84.2 % (95.0-99.0); PO2(98.6) 49 mmHg (60-100)
[2019-06-04] MEDS: DUONEB (A & A) INH SCH ×4 (12:06→22:58)
[2019-06-04] MEDS: ROCEPHIN 1 GM in NS 50 ML IV SCH (12:10)
--- NOTE | 2019-06-05 00:02 | PROGRESS NOTE ---
DATE: 06/04/2019 SUBJECTIVE: Patient notes that he is still having difficulty breathing, still short of breath, still having pain in his lower extremities . OBJECTIVE: Vital Signs: He is afebrile. Pulse in the 90s, blood pressure 140s systolic. General: Patient is in mild respiratory distress. HEENT: Normocephalic. Neck: Supple. Cardiovascular: Regular rate. Chest: Decreased breath sounds. Positive rhonchi and wheezing throughout. Poor air movement throughout. Abdomen: Soft, nondistended, nontender. Extremities: Moves all extremities. Neurologic: No changes. ASSESSMENT: 1. Chronic obstructive pulmonary disease with exacerbation. 2. Acute hypoxic respiratory failure. 3. Leukocytosis. 4. Hyperglycemia. 5. Atrial fibrillation. PLAN: We are going to continue patient in the hospital. We are going to change from MDIs to nebulized treatments. He may need BiPAP if he does not improve. He is currently COVID negative. We will continue antibiotics for left lower lobe, right upper lobe pneumonia. Further orders as needed. cc: Braydon Rousseau MD MTDD
[2019-06-05] MEDS: DUONEB (A & A) INH SCH ×6 (03:31→23:15)
[2019-06-05] MEDS: PERCOCET-10 PO PRN ×3 (05:38→18:00)
--- NOTE | 2019-06-05 08:07 | Diag Imaging Result Doc PS360 ---
EXAM: CHEST-PORTABLE HISTORY: dyspnea TECHNIQUE: Single view COMPARISON: 06/02/2019 FINDINGS: There are dense bilateral infiltrates. The interstitial markings in the left lung are similar to the prior exam, however, the infiltrates in the mid and lower right lung are much more pronounced on the current study. No cardiomegaly. There are small pleural effusions. IMPRESSION: Interval worsening Electronically signed by Sony Bryant 06/05/2019 8:05 AM
[2019-06-05] MEDS: TENORMIN PO SCH ×2 (09:16→20:23)
[2019-06-05] MEDS: NORVASC PO SCH (09:17)
[2019-06-05] MEDS: SOLU-MEDROL IV SCH ×3 (09:17→23:36)
[2019-06-05] MEDS: ZITHROMAX PO SCH (09:18)
[2019-06-05] MEDS: ROCEPHIN 1 GM in NS 50 ML IV SCH (11:40)
--- NOTE | 2019-06-05 16:17 | PROGRESS NOTE ---
DATE: 06/05/2019 SUBJECTIVE: The patient states that he is breathing a little bit easier. Still short of breath, still coughing, still congested, and still having bilateral leg pain. Denies fevers or chills. PHYSICAL EXAMINATION: Vital Signs: Reviewed. Temperature 97 degrees, pulse 104, respiratory 18, BP 146/93, saturation 96% on 4 L. General: The patient is awake and pleasant. He is in mild respiratory distress, not quite back to his baseline. HEENT: Normocephalic. Neck: Supple. Cardiovascular: Regular rate. Chest: Decreased breath sounds. Minimal wheezing. No crackles. Abdomen: Soft and nondistended. Extremities: Moves all extremities. Neurologic: No changes. ASSESSMENT: 1. Chronic obstructive pulmonary disease with exacerbation. 2. Leukocytosis. 3. Mild hyperglycemia. 4. Acute hypoxic respiratory failure. 5. Left pleural effusion. 6. Pneumonia. PLAN: We are going to continue the patient in the hospital. At this point his COVID testing is negative. We are going to place him on Solu-Medrol, continue breathing treatments and oxygen, and we will continue to follow. cc: Braydon Rousseau MD
[2019-06-05] MEDS: FLOMAX PO SCH (20:23)
[2019-06-06] MEDS: DUONEB (A & A) INH SCH ×6 (03:16→23:05)
[2019-06-06] MEDS: PERCOCET-10 PO PRN ×3 (06:00→18:00)
[2019-06-06 06:17] LABS: HEMATOCRIT 35.8 % (42.0-52.0); HEMOGLOBIN 11.1 g/dL (14.0-18.0); MCH 24.6 PG (27-31); MCV 79.4 FL (81-99); MPV 8.6 FL (7.4-10.4); RBC 4.51 XMIL (4.7-6.1); RDW 17.4 % (11.5-14.5); WBC 13.21 X1000 (4.8-10.8)
[2019-06-06 07:14] LABS: AGAP 11; ALBUMIN 2.9 g/dL (3.5-5.0); ALKALINE PHOSPHATASE 73 U/L (32-122); BUN 28 mg/dL (8-22); CALCIUM 8.7 mg/dL (8.8-10.2); CHLORIDE 102 mmol/L (98-107); COSMO 290; CREATININE 0.8 mg/dL (0.7-1.2); ESTIMATED GFR > 60; GLUCOSE 225 mg/dL (70-104); GOT 15 U/L (10-34); GPT 15 U/L (10-44); MAGNESIUM 1.9 mg/dL (1.5-2.7); POTASSIUM 4.2 mmol/L (3.5-5.1); SODIUM 139 mmol/L (136-145); TCO2 26 mmol/L (25-35); TOTAL PROTEIN 6.6 g/dL (6.3-8.3)
[2019-06-06] MEDS: SOLU-MEDROL IV SCH ×2 (09:59→17:30)
[2019-06-06] MEDS: TENORMIN PO SCH ×2 (10:00→21:06)
[2019-06-06] MEDS: NORVASC PO SCH (10:00)
[2019-06-06] MEDS: ZITHROMAX PO SCH (10:00)
--- NOTE | 2019-06-06 10:09 | PROGRESS NOTE ---
DATE: 06/06/2019 SUBJECTIVE: Patient notes that his breathing is improving. He had less trouble breathing last night, less shortness of breath this morning. Denies chest pain, palpitations. Denies fevers or chills. PHYSICAL EXAMINATION: Vital signs: Temperature 97, pulse 112, respiratory rate 18, blood pressure 131/87, saturation 98% on 2 L. General: Patient is awake, pleasant. He is in mild current respiratory distress, much improved from admission. Also improved after starting steroids. HEENT: Normocephalic. Neck: Supple. Cardiovascular: Regular rhythm. Currently mild tachycardia. Chest: Decreased breath sounds. Minimal wheezing. Better air movement, equal bilaterally. No crackles. Abdomen: Soft, nondistended. Extremities: Moves all extremities. Neurologic: No focal changes. He is awake, alert, oriented x3. ASSESSMENT: 1. Benign prostatic hypertrophy. His urinary output has improved since starting Flomax. 2. Chronic obstructive pulmonary disease with exacerbation. Patient is Coronavirus Disease 2019 negative. Therefore, we did start him on steroids, after which he started having a good improvement. We are going to try to wean his steroids slightly today. His oxygen level is decreased from requiring 4 L down to 2 L. 3. Mild leukocytosis. 4. Mild hyperglycemia. 5. Atrial fibrillation, currently stable. 6. Left pleural effusion. 7. Pneumonia. PLAN: We are going to continue patient in the hospital. Continue to follow. Continue to wean breathing treatments, steroids, oxygen. Further orders as needed. Expect he will be in the hospital a couple of days cc: Braydon Rousseau MD MTDD
[2019-06-06] MEDS: ROCEPHIN 1 GM in NS 50 ML IV SCH (12:08)
[2019-06-06] MEDS: FLOMAX PO SCH (21:06)
[2019-06-07] MEDS: SOLU-MEDROL IV SCH ×3 (01:04→17:33)
[2019-06-07] MEDS: DUONEB (A & A) INH SCH ×6 (03:18→23:29)
[2019-06-07] MEDS: PERCOCET-10 PO PRN ×3 (06:02→19:50)
[2019-06-07] MEDS: ZITHROMAX PO SCH (09:18)
[2019-06-07] MEDS: NORVASC PO SCH (09:18)
[2019-06-07] MEDS: TENORMIN PO SCH ×2 (09:18→20:37)
--- NOTE | 2019-06-07 13:13 | PROGRESS NOTE ---
DATE: 06/07/2019 SUBJECTIVE: Patient notes that breathing-carrion, he is continuing to improve. He is still not quite back to his baseline but he is very close. Still short of breath, fatigued with any type of activity. States he needs a walker as well as a nebulizer at home. PHYSICAL EXAMINATION: Temperature 98.3 degrees, pulse 120, respiratory rate 18, BP 145/93, saturation 98% on 2 L. General: Patient is awake, pleasant. He is in mild respiratory distress. Elderly male who is chronically ill. HEENT: Normocephalic. Neck: Supple. Cardiovascular: Regular rate. Chest: Decreased but equal, much improved from admission and slightly improved from yesterday. No current wheezing or crackles. Abdomen: Soft, nondistended. Extremities: Moves all extremities. ASSESSMENT: 1. Chronic obstructive pulmonary disease with exacerbation. 2. Acute hypoxic respiratory failure. Oxygen requirement is continuing to improve. Currently is down to 2 L. 3. Leukocytosis, stable. 4. Atrial fibrillation, stable. 5. Left lower and right upper pneumonia, improving. PLAN: We are going to continue patient in the hospital. Continue breathing treatments, oxygen, antibiotics. Expect to be in the hospital 2 to 3 more days. cc: Braydon Rousseau MD
[2019-06-07] MEDS: ROCEPHIN 1 GM in NS 50 ML IV SCH (13:39)
[2019-06-07] MEDS: FLOMAX PO SCH (20:37)
[2019-06-07] MEDS: MAALOX PLUS LIQUID PO PRN (20:38)
[2019-06-08] MEDS: SOLU-MEDROL IV SCH ×2 (01:11→12:19)
[2019-06-08] MEDS: DUONEB (A & A) INH SCH ×6 (03:39→23:26)
[2019-06-08] MEDS: PERCOCET-10 PO PRN ×3 (05:33→18:22)
[2019-06-08 06:02] LABS: HEMATOCRIT 37.3 % (42.0-52.0); HEMOGLOBIN 11.5 g/dL (14.0-18.0); MCH 24.7 PG (27-31); MCHC 30.8 g/dL (33-37); MPV 8.7 FL (7.4-10.4); RBC 4.66 XMIL (4.7-6.1); RDW 17.8 % (11.5-14.5); WBC 17.91 X1000 (4.8-10.8)
[2019-06-08 06:28] LABS: AGAP 11; ALKALINE PHOSPHATASE 79 U/L (32-122); BUN 33 mg/dL (8-22); CALCIUM 8.8 mg/dL (8.8-10.2); CHLORIDE 102 mmol/L (98-107); COSMO 288; CREATININE 0.8 mg/dL (0.7-1.2); ESTIMATED GFR > 60; GLUCOSE 162 mg/dL (70-104); GOT 35 U/L (10-34); GPT 41 U/L (10-44); MAGNESIUM 2.1 mg/dL (1.5-2.7); POTASSIUM 4.4 mmol/L (3.5-5.1); SODIUM 139 mmol/L (136-145); TCO2 27 mmol/L (25-35); TOTAL PROTEIN 6.7 g/dL (6.3-8.3)
[2019-06-08] MEDS: ZITHROMAX PO SCH (08:53)
[2019-06-08] MEDS: TENORMIN PO SCH ×2 (08:53→20:36)
[2019-06-08] MEDS: NORVASC PO SCH (08:53)
--- NOTE | 2019-06-08 09:41 | Diag Imaging Result Doc PS360 ---
EXAM: CHEST-PORTABLE HISTORY: dyspnea TECHNIQUE: Single view COMPARISON: 06/05/2019 FINDINGS: No cardiomegaly. There are increased interstitial markings in the mid lungs. Infiltrates in the lung bases and left apex are less pronounced on the current study. There is a small left pleural effusion. IMPRESSION: Interval improvement Electronically signed by Sony Bryant 06/08/2019 9:39 AM
[2019-06-08] MEDS: ROCEPHIN 1 GM in NS 50 ML IV SCH (12:19)
--- NOTE | 2019-06-08 13:35 | PROGRESS NOTE ---
DATE: 06/08/2019 SUBJECTIVE: The patient notes overall feeling a lot better. Denies any fevers or chills. Breathing is improving as is his physical stamina. OBJECTIVE: Vital Signs: Temperature 97.9, pulse is elevated at 125 mainly after breathing treatments, blood pressure 130/90, saturation 98% on 2 liters. General: Patient is awake, pleasant. He is in minimal respiratory distress. HEENT: Normocephalic. Neck: Supple. Cardiovascular: Tachycardia. No murmurs. Chest: Decreased but much improved air movement. No current wheezing, no crackles. Abdomen: Soft, nondistended. Extremities: Moves all extremities. Neurologic: No changes. ASSESSMENT: 1. Chronic obstructive pulmonary disease with exacerbation. 2. Atrial fibrillation with rapid rate currently. 3. Adult failure to thrive. 4. Pneumonia left lower and right upper lobe. PLAN: We are going to continue patient in the hospital. Continue breathing treatments, antibiotics, oxygen and will follow. Hopefully can decrease steroids to q.12 h. today and possibly discharge tomorrow. cc: Braydon Rousseau MD
[2019-06-08] MEDS: FLOMAX PO SCH (20:35)
[2019-06-09] MEDS: SOLU-MEDROL IV SCH ×2 (00:43→13:48)
[2019-06-09] MEDS: DUONEB (A & A) INH SCH ×2 (03:43→07:59)
[2019-06-09] MEDS: PERCOCET-10 PO PRN ×3 (07:27→21:55)
[2019-06-09] MEDS: NORVASC PO SCH (09:03)
[2019-06-09] MEDS: ZITHROMAX PO SCH (09:03)
[2019-06-09] MEDS: TENORMIN PO SCH ×2 (09:03→20:00)
[2019-06-09] MEDS ORDERED: CARDIZEM IV ONE ×2 (09:13→13:19)
[2019-06-09 13:40] LABS: HEMATOCRIT 35.9 % (42.0-52.0); IMM GRAN# 0.16 X1000 (0.0-0.04); LYMPH# 0.81 X1000 (1.2-3.4); LYMPH% 5.2 % (20.5-51.1); MCH 24.6 PG (27-31); MCHC 30.6 g/dL (33-37); MCV 80.3 FL (81-99); MONO# 1.36 X1000 (0.11-0.59); MONO% 8.8 % (1.7-9.3); MPV 8.6 FL (7.4-10.4); NEUT# 13.21 X1000 (1.4-6.5); PLT 504 X1000 (130-400); RBC 4.47 XMIL (4.7-6.1); RDW 17.6 % (11.5-14.5); WBC 15.54 X1000 (4.8-10.8)
[2019-06-09] MEDS: ROCEPHIN 1 GM in NS 50 ML IV SCH (13:48)
[2019-06-09 14:03] LABS: AGAP 11; ALBUMIN 3.2 g/dL (3.5-5.0); BUN 35 mg/dL (8-22); CALCIUM 8.8 mg/dL (8.8-10.2); CHLORIDE 100 mmol/L (98-107); COSMO 287; CREATININE 0.9 mg/dL (0.7-1.2); ESTIMATED GFR > 60; GLUCOSE 190 mg/dL (70-104); PHOSPHORUS 3.1 mg/dL (2.7-4.5); POTASSIUM 4.5 mmol/L (3.5-5.1); SODIUM 137 mmol/L (136-145); TCO2 26 mmol/L (25-35)
--- NOTE | 2019-06-09 14:21 | PROGRESS NOTE ---
DATE: 06/09/2019 SUBJECTIVE: I was informed by nurse that this morning the patient has chronic atrial fibrillation. His heart rate has been elevated in the range of 120s and 130s and sometimes he reached 150s. The patient is on his Toprol and also received 1 dose of Cardizem IV 10 mg but is still with elevated heart rate. OBJECTIVE: Vital Signs: Temperature 98.1 degrees, heart rate 99, respiratory rate 18, blood pressure 147/99, O2 saturation 99% on 2 L nasal cannula. General: This is a chronically ill- appearing, 78-year-old male, lying in bed, in no acute distress. Cardiovascular: Irregularly irregular, heart rhythm tachycardic. No murmurs, gallops, or rubs noted. Respiratory: Coarse breath sounds noted in both pulmonary bases. Patient not using any accessory muscles or having work of breathing. Abdomen: Soft, nontender to palpation. Bowel sounds present. No organomegaly. Extremities: No clubbing, cyanosis, or edema. Peripheral pulses present in both legs. Neurological: Patient alert and oriented x3. Moves 4 extremities. LABORATORY DATA: Reviewed. ASSESSMENT: 1. Acute respiratory failure secondary to chronic obstructive pulmonary disease exacerbation. 2. Atrial fibrillation with rapid ventricular response. 3. Pneumonia in the left lower, right upper lobe. PLAN: Unfortunately this patient continues to have atrial fibrillation with rapid ventricular response. At this point, considering that we have failed to treat this condition with beta- blockers and 1 dose of IV Cardizem and also Cardizem by mouth, I am going to send this patient PVC to be put on Cardizem drip. We will continue with current antibiotic management and will monitor this patient closely. cc: Pablo Romeo MD
[2019-06-09] MEDS: CARDIZEM 100 MG/NS 100 MG/100 ML IVPB IV SCH ×2 (15:54→21:57)
[2019-06-09] MEDS: FLOMAX PO SCH (20:00)
[2019-06-10] MEDS: SOLU-MEDROL IV SCH ×2 (02:21→12:42)
[2019-06-10 05:54] LABS: HEMATOCRIT 34.8 % (42.0-52.0); HEMOGLOBIN 10.8 g/dL (14.0-18.0); IMM GRAN# 0.12 X1000 (0.0-0.04); IMM GRAN% 0.9 % (0.0-0.5); LYMPH# 0.67 X1000 (1.2-3.4); LYMPH% 5.1 % (20.5-51.1); MCH 24.5 PG (27-31); MCV 78.9 FL (81-99); MONO# 0.62 X1000 (0.11-0.59); MONO% 4.7 % (1.7-9.3); MPV 8.7 FL (7.4-10.4); NEUT# 11.68 X1000 (1.4-6.5); NEUT% 89.3 % (42.2-75.2); PLT 484 X1000 (130-400); RBC 4.41 XMIL (4.7-6.1); RDW 17.6 % (11.5-14.5); WBC 13.09 X1000 (4.8-10.8)
[2019-06-10] MEDS: PERCOCET-10 PO PRN ×2 (05:55→17:45)
[2019-06-10 06:07] LABS: AGAP 9; ALBUMIN 2.9 g/dL (3.5-5.0); BUN 34 mg/dL (8-22); CALCIUM 8.3 mg/dL (8.8-10.2); CHLORIDE 102 mmol/L (98-107); COSMO 286; CREATININE 0.8 mg/dL (0.7-1.2); ESTIMATED GFR > 60; GLUCOSE 145 mg/dL (70-104); PHOSPHORUS 3.1 mg/dL (2.7-4.5); POTASSIUM 4.4 mmol/L (3.5-5.1); SODIUM 138 mmol/L (136-145); TCO2 27 mmol/L (25-35)
[2019-06-10 07:58] LABS: BANDS 2 % (0-1); LYMPHS 4 % (21-51); MONO 4 % (1-9); SEGS 90 % (42-75)
[2019-06-10] MEDS: TENORMIN PO SCH ×2 (08:20→21:03)
[2019-06-10] MEDS: NORVASC PO SCH (08:20)
[2019-06-10] MEDS: ZITHROMAX PO SCH (08:20)
--- NOTE | 2019-06-10 10:09 | PROGRESS NOTE ---
DATE: 06/10/2019 SUBJECTIVE: The patient reports feeling fine. Denies any chest pain, chest pressure, or palpitations. He is on Cardizem drip at 10 mg/hour. The heart rate is much better controlled. OBJECTIVE: Vital Signs: Temperature 97.5 degrees, heart rate 94, respiratory rate 22, blood pressure 136/102, and O2 saturation 95% on 4 L nasal cannula. General: This is a chronically ill-looking 78-year-old male lying in bed in no acute distress. Cardiovascular: Irregularly irregular heart rhythm. No murmurs, gallops, or rubs. Respiratory: Minimal coarse breath sounds noted in both pulmonary bases. Patient not using any accessory muscles or having work of breathing. Abdomen: Soft. Nontender to palpation. Bowel sounds present. No organomegaly. Extremities: No clubbing, cyanosis, or edema. Peripheral pulses present in both legs. Neurologic: The patient is alert and oriented x3. Moves all 4 extremities. LABORATORY DATA: White cell count 13.09, hemoglobin 10.8, hematocrit 34.8, and platelets 484,000 with normal BMP. ASSESSMENT AND PLAN: 1. Acute respiratory failure secondary to chronic obstructive pulmonary disease exacerbation. 2. Left lower and right upper lobe and community-acquired pneumonia. 3. Atrial fibrillation with rapid ventricular response. At this point, the patient has been transferred to PVC Unit here in [facility] because of the chronic atrial fibrillation becoming uncontrolled. The patient currently on Cardizem drip at 10 mg/hour. The heart rate is definitely much better less than 90. At this point, I am planning to start Cardizem oral in this case, 30 mg q.6 hours as scheduled. We will see if with this medication we can decrease the doses of the drip, and try to stop it. We will continue with beta blockers. We will continue with IV and oral antibiotics. Once this heart rate is better controlled, I think this patient can be discharged. We are going to add anticoagulation for this patient. In this case, considering also the patient's age. We will do Eliquis 2.5 mg p.o. b.i.d. cc: Pablo Romeo MD
[2019-06-10] MEDS: ELIQUIS PO SCH ×2 (10:10→21:03)
[2019-06-10] MEDS: CARDIZEM PO SCH ×3 (10:10→21:03)
[2019-06-10] MEDS: ROCEPHIN 1 GM in NS 50 ML IV SCH (12:42)
[2019-06-10] MEDS: CARDIZEM 100 MG/NS 100 MG/100 ML IVPB IV SCH (12:42)
[2019-06-10] MEDS: MAALOX PLUS LIQUID PO PRN (13:01)
[2019-06-10] MEDS: FLOMAX PO SCH (21:03)
[2019-06-11] MEDS: CARDIZEM PO SCH ×4 (01:43→19:56)
[2019-06-11] MEDS: PERCOCET-10 PO PRN ×4 (01:43→19:29)
[2019-06-11] MEDS: SOLU-MEDROL IV SCH ×2 (01:43→13:02)
[2019-06-11 06:46] LABS: IMM GRAN# 0.17 X1000 (0.0-0.04); LYMPH# 1.01 X1000 (1.2-3.4); LYMPH% 6.1 % (20.5-51.1); MCH 24.9 PG (27-31); MCHC 31.4 g/dL (33-37); MCV 79.2 FL (81-99); MONO# 0.74 X1000 (0.11-0.59); MONO% 4.5 % (1.7-9.3); NEUT# 14.54 X1000 (1.4-6.5); NEUT% 88.4 % (42.2-75.2); PLT 489 X1000 (130-400); RBC 4.42 XMIL (4.7-6.1); RDW 17.4 % (11.5-14.5); WBC 16.46 X1000 (4.8-10.8)
[2019-06-11 07:29] LABS: AGAP 12; ALBUMIN 2.8 g/dL (3.5-5.0); BUN 42 mg/dL (8-22); CALCIUM 8.6 mg/dL (8.8-10.2); CHLORIDE 101 mmol/L (98-107); COSMO 293; ESTIMATED GFR > 60; GLUCOSE 160 mg/dL (70-104); PHOSPHORUS 3.1 mg/dL (2.7-4.5); POTASSIUM 4.4 mmol/L (3.5-5.1); SODIUM 140 mmol/L (136-145); TCO2 27 mmol/L (25-35)
[2019-06-11] MEDS: NORVASC PO SCH (08:02)
[2019-06-11] MEDS: ELIQUIS PO SCH ×2 (08:02→20:00)
[2019-06-11] MEDS: ZITHROMAX PO SCH (08:03)
[2019-06-11] MEDS: TENORMIN PO SCH ×2 (08:03→20:00)
[2019-06-11] MEDS: ROCEPHIN 1 GM in NS 50 ML IV SCH (13:02)
--- NOTE | 2019-06-11 14:12 | PROGRESS NOTE ---
DATE: 06/11/2019 SUBJECTIVE: He is a patient of Dr. Daniel Carranza. Came in with shortness of breath. A 78-year-old presented to the emergency department with increased work of breathing, congestion, increased shortness of breath. Denied fever, chills. Denies any exposure to COVID. Has been wheezing at home so admitted with exacerbation of COPD, mild leukocytosis, mild hyperglycemia, atrial fibrillation, chronic left pleural effusion, and probable pneumonia of left lower lobe and right upper lobe. He feels better, breathing better. He is asking about when he can go home. OBJECTIVE: Vital Signs: He remains afebrile, temperature 97.8 degrees, pulse 96, respirations 17, blood pressure 113/60. HEENT: Pupils are equal and round. Lungs: Clear in all lung castro. Cardiovascular: Regular rhythm, regular rate without murmur or S3. MEDICATIONS: Review of his orders. He is on Flomax 0.4 mg at bedtime, Cardizem 30 mg p.o. q.6 hours, Norvasc 5 mg a day, Eliquis 2.5 mg b.i.d., Tenormin 50 mg b.i.d., azithromycin 500 mg daily, Cardizem drip, ceftriaxone 1 g q.24 hours. LABORATORY DATA: Urine output is 1200 mL. White count still elevated at 16,460, hematocrit is 35, platelet count 489,000. Chemistry: Sodium 140, potassium 4.4, chloride 101, BUN 42, creatinine 1.0. Blood sugars 145, 238, 160, 139, 166. ASSESSMENT AND PLAN: 1. Acute respiratory failure secondary to chronic obstructive pulmonary disease exacerbation. 2. Left lower and right upper lobe community-acquired pneumonia. 3. Atrial fibrillation with rapid ventricular response. Patient in chronic atrial fibrillation. Rate has been controlled. 4. Clinically better air and gas exchange. 5. See if we can tar heat exchanger cleaner to Cardizem p.o. His heart rate and blood pressure appear to be well controlled. He is on Eliquis 2.5 mg b.i.d., Norvasc 5 mg a day, so we will stop his Cardizem drip. cc: Drake Hodges MD
[2019-06-11] MEDS: MAALOX PLUS LIQUID PO PRN (18:11)
[2019-06-11] MEDS: FLOMAX PO SCH (20:00)
[2019-06-12] MEDS: CARDIZEM PO SCH ×3 (01:46→14:19)
[2019-06-12] MEDS: SOLU-MEDROL IV SCH ×2 (01:46→13:54)
[2019-06-12] MEDS: PERCOCET-10 PO PRN (02:58)
[2019-06-12] MEDS: MAALOX PLUS LIQUID PO PRN (04:28)
[2019-06-12 06:03] LABS: HEMATOCRIT 36.1 % (42.0-52.0); HEMOGLOBIN 11.2 g/dL (14.0-18.0); IMM GRAN# 0.21 X1000 (0.0-0.04); IMM GRAN% 1.1 % (0.0-0.5); LYMPH% 5.6 % (20.5-51.1); MCH 24.6 PG (27-31); MCV 79.3 FL (81-99); MONO# 0.35 X1000 (0.11-0.59); MONO% 1.8 % (1.7-9.3); MPV 8.8 FL (7.4-10.4); NEUT# 17.87 X1000 (1.4-6.5); NEUT% 91.5 % (42.2-75.2); PLT 484 X1000 (130-400); RBC 4.55 XMIL (4.7-6.1); RDW 17.4 % (11.5-14.5); WBC 19.53 X1000 (4.8-10.8)
[2019-06-12 06:15] LABS: AGAP 6; ALBUMIN 2.8 g/dL (3.5-5.0); BUN 38 mg/dL (8-22); CALCIUM 8.3 mg/dL (8.8-10.2); CHLORIDE 99 mmol/L (98-107); COSMO 285; CREATININE 0.8 mg/dL (0.7-1.2); ESTIMATED GFR > 60; GLUCOSE 176 mg/dL (70-104); POTASSIUM 4.6 mmol/L (3.5-5.1); SODIUM 136 mmol/L (136-145); TCO2 31 mmol/L (25-35)
[2019-06-12 06:57] LABS: LYMPHS 6 % (21-51); MONO 1 % (1-9); SEGS 93 % (42-75)
[2019-06-12] MEDS: ELIQUIS PO SCH (09:03)
[2019-06-12] MEDS: ZITHROMAX PO SCH (09:03)
[2019-06-12] MEDS: TENORMIN PO SCH (09:03)
[2019-06-12] MEDS: NORVASC PO SCH (09:04)
[2019-06-12 11:17] VITALS: BP 131/82
[2019-06-12] MEDS: DUONEB (A & A) INH PRN (12:17)
--- NOTE | 2019-06-12 13:12 | DISCHARGE SUMMARY ---
ADMISSION DATE: 06/02/2019 DISCHARGE DATE: 06/12/2019 PRIMARY CARE PHYSICIAN: Dr. Daniel Carranza. REASON FOR ADMISSION: Came in shortness of breath. HISTORY: This is a 78-year-old male who presented to the emergency department with increased work of breathing, cough, congestion, increased shortness of breath. Denied fever or chills. Denied any exposure to COVID-19 virus or upper respiratory infection that he knew of. States he has been wheezing at home and still smokes. ALLERGIES: Codeine causing constipation. MEDICATIONS: Amlodipine, atenolol, and Percocet. HOSPITAL COURSE: The patient admitted with ascites and mild leukocytosis, white count was 12,000, and COPD exacerbation, mild hyperglycemia, chronic atrial fibrillation, rate controlled, left pleural effusion, probable pneumonia, left lower and right upper lobe. Chest x-ray on presentation, left pleural effusion, atelectasis, pneumonia, left lower lobe and right upper lobe and underlying pulmonary fibrosis appreciated. Bilateral infiltrates seemed to worsen. Interstitial markings in the left lung similar to prior exam. He was put on antibiotics and a follow-up chest x-ray on 06/05/2019 only showed some interval improvement. Clinically he seemed to improve. He already was on home oxygen. He showed steady improvement radiographically and clinically, and felt he could go home on 06/12/2019. DISCHARGE MEDICATIONS: We will discharge him home on his Flomax 0.4 mg at bedtime. We will put him on once a day Cardizem, should be 120 mg Cardizem long-acting once a day, Eliquis 2.5 mg b.i.d., Norvasc 5 mg a day. At home, he was taking atenolol and he was taking 50 mg twice a day and we will stop that. He also was getting oxycodone for pain and I will let him get that as an outpatient, he was taking 10 mg t.i.d. FOLLOWUP: He will follow up with his primary care physician and resume his home O2. cc: MD Daniel Ramirez MD
[2019-06-12] MEDS: ROCEPHIN 1 GM in NS 50 ML IV SCH (13:17)
--- NOTE | 2019-06-12 13:22 | DISCHARGE SUMMARY ---
ADMISSION DATE: 06/02/2019 DISCHARGE DATE: ADDENDUM: I am going to keep him on his atenolol 50 mg p.o. b.i.d., and change his Cardizem so it is Cardizem CD 120 mg daily. I am also going to put him on Eliquis during his hospitalization. He was obviously in chronic atrial fibrillation, and he had a more rapid ventricular response. We added Cardizem to his regimen. He was moved to the PVC unit because of the atrial fibrillation so rate appeared to be controlled. We will discharge on 06/12/2019. cc: Drake Hodges MD
== END 2019-06-12 14:20 | disposition home health service (06) | DRG 193 ==
LOC: P.ED 11:43 → SUATTDRO 19:37 → P.MEDSURG 19:37 → 2N 06-09 15:26
PROVIDERS: ATTEND Emergency Medicine